=== PATIENT | female | born 1960 | race Caucasian/White ===

== ENCOUNTER → 2017-05-19 | Outpatient (CLI) | payer MEDICARE ==
--- NOTE | 2017-05-19 16:51 | WOMENS IMAGING REPORT ---
EXAM DESCRIPTION: 3D SCREENING MAMMO BILAT COMPLETED DATE/TIME: 05/19/2017 11:04 am REASON FOR STUDY: ROUTINE BILATERAL SCREENIG;Z12.31 Z12.31 ENCNTR SCREEN MAMMOGRAM FOR MALIGNANT NE OPLASM OF YE COMPARISON: 2014 TECHNIQUE: Standard craniocaudal and mediolateral oblique views of each breast recorded using digita l acquisition and breast tomosynthesis. LIMITATIONS: None. FINDINGS: No masses, calcifications or architectural distortion. No areas of suspicion. Read with the assistance of CAD. .[facility] - R2 Cenova Version 1.3 .[facility] - R2 Cenova Version 1.3 .[facility] - R2 Cenova Version 2.4 .[facility] - R2 Cenova Version 2.4 .[facility] - R2 Vegetable Preparer Version 9.2 IMPRESSION: NORMAL MAMMOGRAM. BIRADS 1. BREAST DENSITY: a. The breasts are almost entirely fatty. BIRAD: 1 NEGATIVE RECOMMENDATION: ROUTINE SCREENING COMMENT: The patient has been notified of the results by letter per MQSA requirements. Additional no tification policies are in place for contacting patient with suspicious or incomplete findings. Quality ID #[id number]: The [employer] recommends an annual screening mammogram for women aged 40 years or over. This facility utilizes a reminder system to ensure that all patients receive reminder letters, and/or direct phone calls for appointments. This includes reminders for routine scr eening mammograms, diagnostic mammograms, or other Breast Imaging Interventions when appropriate. Th is patient will be placed in the appropriate reminder system. The [employer] (ACR) has developed recommendations for screening MRI of the breast s in certain patient populations, to be used in conjunction with mammography. Breast MRI surveillanc e may be appropriate for women with more than 20% lifetime risk of developing breast cancer as deter mined by genetic testing, significant family history of the disease, or history of mantle radiation f or Hodgkins Disease. ACR Practice Guidelines 2008. DBT Technology DBT is a type of tomographic mammography. With conventional mammography, overlapping breast tissue ma y make lesions difficult to detect, even with good compression. DBT uses an x-ray tube that rotates a round the breast, taking images at different angles. These images are then combined to create thin sl ices of the breast that the radiologist can view as a 3D reconstruction. The [employer] unit can perform full-field digital mammograms (2D imaging); or DBT (3D imaging); or both, in a combination mode that quickly performs both the mammogram and the tomosynthesis scan while the breast is still compressed. PQRS 6045F: Fluoroscopic imaging is not utilized for breast tomosynthesis. TECHNICAL DOCUMENTATION: FINDING NUMBER: (1) ASSESSMENT: (1) JOB ID: [id number] [employer]- All Rights Reserved
== END ==
LOC: WI 10:20
PROVIDERS: ATTEND Internal Medicine
DX: Z12.31 Encounter for screening mammogram for malignant neoplasm of breast (principal)
CPT/HCPCS: 77063; G0202; 77067

== ENCOUNTER 2017-12-23 05:47 | Emergency (ER) | payer MEDICARE ==
[2017-12-23] MEDS ORDERED: IPRATROPIUM/ALBUTEROL 0.5-2.5 MG/3 ML AMPUL NEB ONE (05:54)
[2017-12-23] MEDS: ALBUTEROL SULFATE 0.083% NEB 2.5 MG/3 ML AMPUL NEB SCH ×2 (06:25→06:26)
--- NOTE | 2017-12-23 06:46 | RADIOLOGY REPORT (SQ) ---
Chest single view on 12/23/2017 at 6:30 AM CLINICAL INDICATION: Shortness of breath COMPARISON: 08/29/2012 FINDINGS: The lungs are clear. The patient is slightly rotated on this exam. Mild vascular calcification is noted in the aorta. Cardiac, hilar and mediastinal contours are within normal limits. Pulmonary vascularity is within normal limits. No bony abnormality is noted. IMPRESSION: No active disease.
[2017-12-23 07:40] LABS: ABSOLUTE EOSINOPHILS # (AUTO) 0.2 10^3/uL (0.0-0.6); ABSOLUTE MONOCYTES (AUTO) 0.7 10^3/uL (0.1-1.4); ABSOLUTE NEUT (AUTO) 8.4 10^3/uL (1.7-8.2); BASOPHILS % (AUTO) 0.2 % (0-2); EOSINOPHILS % (AUTO) 2.2 % (0-6); HEMATOCRIT 36.1 % (36.0-47.0); HEMOGLOBIN 12.4 g/dL (12.0-15.5); LYMPHOCYTES % (AUTO) 9.8 % (13-45); MEAN CORPUSCULAR HEMOGLOBIN 27.9 pg (27.0-33.4); MEAN CORPUSCULAR HGB CONC 34.2 g/dL (32.0-36.0); MEAN CORPUSCULAR VOLUME 82 fl (80-97); MONOCYTES % (AUTO) 6.5 % (3-13); PLATELET COUNT 286 10^3/uL (150-450); RED BLOOD COUNT 4.43 10^6/uL (3.72-5.28); RED CELL DISTRIBUTION WIDTH 14.5 % (11.5-14.0); SEGMENTED NEUTROPHILS % (AUTO) 81.3 % (42-78); TOTAL CELLS COUNTED % (AUTO) 100 %; WHITE BLOOD COUNT 10.3 10^3/uL (4.0-10.5)
[2017-12-23 07:55] LABS: ANION GAP 7 (5-19); BLOOD UREA NITROGEN 5 mg/dL (7-20); CALCIUM 9.4 mg/dL (8.4-10.2); CARBON DIOXIDE 38 mmol/L (22-30); CHLORIDE 83 mmol/L (98-107); GLUCOSE 151 mg/dL (75-110); POTASSIUM 4.4 mmol/L (3.6-5.0); SODIUM 127.6 mmol/L (137-145)
[2017-12-23 08:43] LABS: VENOUS BLOOD BASE EXCESS 6.8 mmol/L; VENOUS BLOOD PH 7.33 (7.30-7.42)
[2017-12-23 08:45] LABS: VENOUS BLOOD PCO2 68.3 mmHg (35-63)
--- NOTE | 2017-12-23 10:57 | ER Document Report ---
ED General - General Chief Complaint: Shortness Of Breath Stated Complaint: DIFFICULTY BREATHING Time Seen by Provider: 12/23/17 06:50 TRAVEL OUTSIDE OF THE [place] IN LAST 30 DAYS: No - HPI Patient complains to provider of: Shortness of breath Notes: Patient has a history of COPD coming in for shortness of breath. Patient ongoing for the last 3-4 days. Patient is on home oxygen 3-1/2 L. Patient states was recently seen by primary care physician for productive cough and placed on doxycycline. Patient states symptoms have continued. Denies any fever chills nausea vomiting or diarrhea. Patient states she does feel anxious in the middle night sometimes waking of having shortness of breath. Patient denies any history of sleep apnea. Patient resting company upon my evaluation on her home O2 no signs of hypoxia. Patient does continue to smoke states last assessment was prior to arrival. - Related Data Allergies/Adverse Reactions: amoxicillin [Amoxicillin] Allergy (Mild, Verified 12/23/17 10:02) Hives cephalexin monohydrate [From Keflex] Allergy (Mild, Verified 12/23/17 10:02) Hives ciprofloxacin [From Cipro] Allergy (Mild, Verified 12/23/17 10:02) Hives codeine [Codeine] Allergy (Mild, Verified 12/23/17 10:02) Hives erythromycin base [Erythromycin Base] Allergy (Mild, Verified 12/23/17 10:02) Hives Penicillins Allergy (Mild, Verified 12/23/17 10:02) Hives Past Medical History - Social History Smoking Status: Never Smoker Family History: Arthritis, CAD, Hyperlipidemia, Hypertension Patient has suicidal ideation: No Patient has homicidal ideation: No - Past Medical History Cardiac Medical History: Reports: Hx Hypercholesterolemia, Hx Hypertension Pulmonary Medical History: Reports: Hx COPD, Hx Pneumonia Endocrine Medical History: Reports: Hx Diabetes Mellitus Type 2 Renal/ Medical History: Denies: Hx Peritoneal Dialysis GI Medical History: Reports: Hx Gastroesophageal Reflux Disease Musculoskeletal Medical History: Reports Hx Arthritis Past Surgical History: Reports: Hx Section, Hx Cholecystectomy - Immunizations Immunizations up to date: Yes Hx Diphtheria, Pertussis, Tetanus Vaccination: Yes Hx Pneumococcal Vaccination: 06/06/11 Review of Systems - Review of Systems Constitutional: No symptoms reported EENT: No symptoms reported Cardiovascular: No symptoms reported Respiratory: Short of breath Gastrointestinal: No symptoms reported Genitourinary: No symptoms reported Female Genitourinary: No symptoms reported Musculoskeletal: No symptoms reported Skin: No symptoms reported Hematologic/Lymphatic: No symptoms reported Neurological/Psychological: No symptoms reported -: Yes All other systems reviewed and negative Physical Exam - Vital signs Vitals: Pulse Ox 97 12/23/17 05:51 Interpretation: Normal - General General appearance: Appears well, Alert - HEENT Head: Normocephalic, Atraumatic Eyes: Normal Pupils: PERRL - Respiratory Respiratory status: No respiratory distress Chest status: Nontender Breath sounds: Wheezing - Scattered fine Chest palpation: Normal - Cardiovascular Rhythm: Regular Heart sounds: Normal auscultation Murmur: No - Abdominal Inspection: Normal Distension: No distension Bowel sounds: Normal Tenderness: Nontender Organomegaly: No organomegaly - Back Back: Normal, Nontender - Extremities General upper extremity: Normal inspection, Nontender, Normal color, Normal ROM , Normal temperature General lower extremity: Normal inspection, Nontender, Normal color, Normal ROM , Normal temperature, Normal weight bearing. No: Jerry's sign - Neurological Neuro grossly intact: Yes Cognition: Normal Orientation: AAOx4 [place] Coma Scale Eye Opening: Spontaneous [place] Coma Scale Verbal: Oriented [place] Coma Scale Motor: Obeys Commands Edilberto Coma Scale Total: 15 Speech: Normal Motor strength normal: LUE, RUE, LLE, RLE Sensory: Normal - Psychological Associated symptoms: Normal affect, Normal mood - Skin Skin Temperature: Warm Skin Moisture: Dry Skin Color: Normal Course - Re-evaluation Re-evalutation: 12/23/17 14:55 Laboratory studies that showed elevated bicarbonate for a venous blood gas was drawn although there is elevation of the patient's CO2 this looks to be chronic and there is no signs of acidosis. During her stay here the patient's vital signs show no signs of hypoxia patient maintaining here in ER with normal vital signs. Patient has no signs of acute respiratory distress nor CO2 narcosis. Patient case and laboratory findings were discussed with PCP recommend continued course agrees with steroids at this time will discharge patient home follow-up in 1-2 weeks patient is also heavily encouraged to stop smoking. - Vital Signs Vital signs: Temp Pulse Resp BP Pulse Ox 97.1 F 18 123/65 96 12/23/17 11:08 12/23/17 11:08 12/23/17 11:08 12/23/17 11:08 - Laboratory Result Diagrams: 12/23/17 05:55 12/23/17 05:55 Laboratory results interpreted by me: 12/23/17 12/23/17 12/23/17 05:55 05:55 05:55 RDW 14.5 H Seg Neutrophils % 81.3 H Lymphocytes % 9.8 L Absolute Neutrophils 8.4 H VBG pCO2 68.3 H* VBG HCO3 35.0 H Sodium 127.6 L Chloride 83 L Carbon Dioxide 38 H BUN 5 L Glucose 151 H POC Glucose 12/23/17 07:53 RDW Seg Neutrophils % Lymphocytes % Absolute Neutrophils VBG pCO2 VBG HCO3 Sodium Chloride Carbon Dioxide BUN Glucose POC Glucose 211 H Discharge - Discharge Clinical Impression: Cough, Smoking addiction COPD (chronic obstructive pulmonary disease) Qualifiers: COPD type: unspecified COPD Qualified Code(s): J44.9 - Chronic obstructive pulmonary disease, unspecified Disposition: HOME, SELF-CARE Instructions: Chronic Obstructive Lung Disease ([facility]) Additional Instructions: Your examination today shows a slight exacerbation of her COPD. Otherwise after breathing treatment your vital signs have been normal. Lab work does not show any critical pathology. Chest x-ray is negative for any signs of pneumonia. I did discuss her case with your primary care physician Dr. Argueta. Recommend to continue doxycycline as prescribed I will start you on steroids for the next few days to also see if this will aid in your symptoms. I also recommend following up with Dr. Argueta in approximately 1-2 weeks. Prescriptions: Prednisone [Deltasone 20 mg Tablet] 2 tab PO DAILY 4 Days tablet Forms: Smoking Cessation Education Referrals: YAJAIRA ARGUETA MD [Primary Care Provider] - Follow up in 1 week
[2017-12-23 11:20] VITALS: BP 123/65
--- NOTE | 2017-12-23 22:08 | EKG REPORT ---
SEVERITY:- BORDERLINE ECG - SINUS RHYTHM BORDERLINE INFERIOR Q WAVES : Confirmed by: Summer Pak 23-Dec-2017 22:07:40
== END 2017-12-23 11:21 | disposition home or self-care (01) ==
LOC: ER 05:47
DX: J44.9 Chronic obstructive pulmonary disease, unspecified (principal); Z99.81 Dependence on supplemental oxygen; F17.200 Nicotine dependence, unspecified, uncomplicated; F41.9 Anxiety disorder, unspecified; R06.02 Shortness of breath; R05 Cough; I10 Essential (primary) hypertension; E11.9 Type 2 diabetes mellitus without complications; Z88.0 Allergy status to penicillin; Z88.1 Allergy status to other antibiotic agents; Z88.5 Allergy status to narcotic agent; Z87.01 Personal history of pneumonia (recurrent)
CPT/HCPCS: 93005; 94640 ×2; 99285; 36415; 82962; 85025; 80048; 84484; 82803; 71045; 93010; A9270 ×2; J7620

== ENCOUNTER 2017-12-26 04:24 | Observation (INO) | payer MEDICARE ==
[2017-12-26] MEDS ORDERED: NORMAL SALINE 1000 ML 1,000 ML IV ONE (04:47)
[2017-12-26] MEDS ORDERED: IPRATROPIUM/ALBUTEROL 0.5-2.5 MG/3 ML AMPUL NEB ONE (04:47)
--- NOTE | 2017-12-26 04:49 | ER Document Report ---
ED Respiratory Problem - General Chief Complaint: Shortness Of Breath Stated Complaint: SHORTNESS OF BREATH Time Seen by Provider: 12/26/17 04:34 Notes: Patient is a 57-year-old female with a history of COPD and continued tobacco abuse that comes emergency department for chief complaint of shortness of breath. Symptoms started just prior to arrival when she woke up, she comes by EMS, received 2 DuoNeb treatments and 125 mg of Solu-Medrol. She is already on doxycycline and steroid, last medication of the steroid is today. She denies fever or chills. She denies specific chest pain without cough. She denies dizziness or passing out. She denies vomiting. Other past medical history includes hypertension and oxygen dependence, is on 3.5 L of oxygen at all times currently. TRAVEL OUTSIDE OF THE [place] IN LAST 30 DAYS: No - Related Data Allergies/Adverse Reactions: amoxicillin [Amoxicillin] Allergy (Mild, Verified 12/23/17 10:02) Hives cephalexin monohydrate [From Keflex] Allergy (Mild, Verified 12/23/17 10:02) Hives ciprofloxacin [From Cipro] Allergy (Mild, Verified 12/23/17 10:02) Hives codeine [Codeine] Allergy (Mild, Verified 12/23/17 10:02) Hives erythromycin base [Erythromycin Base] Allergy (Mild, Verified 12/23/17 10:02) Hives Penicillins Allergy (Mild, Verified 12/23/17 10:02) Hives Past Medical History - General Information source: Patient - Social History Smoking Status: Current Every Day Smoker Smoking Education Provided: Yes - <3 min Frequency of alcohol use: None Drug Abuse: None Lives with: Family Family History: Arthritis, CAD, Hyperlipidemia, Hypertension - Past Medical History Cardiac Medical History: Reports: Hx Hypercholesterolemia, Hx Hypertension Pulmonary Medical History: Reports: Hx COPD, Hx Pneumonia Endocrine Medical History: Reports: Hx Diabetes Mellitus Type 2 Renal/ Medical History: Denies: Hx Peritoneal Dialysis GI Medical History: Reports: Hx Gastroesophageal Reflux Disease Musculoskeletal Medical History: Reports Hx Arthritis Past Surgical History: Reports: Hx Section, Hx Cholecystectomy - Immunizations Immunizations up to date: Yes Hx Diphtheria, Pertussis, Tetanus Vaccination: Yes Hx Pneumococcal Vaccination: 06/06/11 Review of Systems - Review of Systems Constitutional: No symptoms reported EENT: No symptoms reported Cardiovascular: See HPI Respiratory: See HPI Gastrointestinal: No symptoms reported Genitourinary: No symptoms reported Female Genitourinary: No symptoms reported Musculoskeletal: No symptoms reported Skin: No symptoms reported Hematologic/Lymphatic: No symptoms reported Neurological/Psychological: No symptoms reported Physical Exam - Vital signs Vitals: Resp 12/26/17 04:31 - Notes Notes: GENERAL: Alert, interacts well. Does not appear to be in distress HEAD: Normocephalic, atraumatic. EYES: Pupils equal, round, and reactive to light. Extraocular movements intact. ENT: Oral mucosa moist, tongue midline. [Nares patent, no nasal septal hematoma , TM's intact.] NECK: Full range of motion. Supple. Trachea midline. LUNGS: Decreased breath sounds bilaterally with end expiratory wheezes throughout, a few scattered coarse breath sounds, no overt rhonchi or rales. No notable tachypnea or distress. HEART: Tachycardic, normal rhythm, no murmur. ABDOMEN: Soft, non-tender. Non-distended. Bowel sounds present in all 4 quadrants. EXTREMITIES: Moves all 4 extremities spontaneously. No edema, normal radial and dorsalis pedis pulses bilaterally. No cyanosis. BACK: no cervical, thoracic, lumbar midline tenderness. No saddle anesthesia, normal distal neurovascular exam. NEUROLOGICAL: Alert and oriented x3. Normal speech. [cranial nerves II through XII grossly intact]. PSYCH: Intermittently mildly anxious but no severe anxiety or concerning abnormality noted SKIN: Warm, dry, normal turgor. No rashes or lesions noted. Course - Re-evaluation Re-evalutation: On initial evaluation patient has decreased breath sounds, expiratory wheezes, however she is not in respiratory distress. Her oxygen saturation is ranging from 90-97% on her regular oxygen. No fever. Tachycardia probably from albuterol treatments but uncertain at this time. Giving IV fluids, duo nebs, magnesium, workup pending, will reevaluate. On reexamination patient's wheezing has resolved, lung sounds much improved, oxygen saturation with no significant change from a patient with no significant change. Chest x-ray with no acute abnormality, CBC shows mild leukocytosis which is nonspecific given patient's steroid use, chemistry shows mild hyponatremia, hypochloremia, mildly elevated potassium but patient was given 1 L of IV fluids. Venous blood gas shows CO2 of 73, however previous CO2 was 68 when she was discharged home and there is no acidosis. There is compensation. Suspect this is chronic. Patient stating she is below her baseline at home, she was seen here 3 days ago and already placed on steroids, she is already on doxycycline. When ambulated patient's pulse oxygenation dropped down to 88%, heart rate went up to the 120s , she did have labored breathing. Patient states she is not at her baseline and she is not comfortable going home yet. 12/26/17 07:[address] Argueta, patient's provider, patient will be admitted to telemetry observation for COPD exacerbation. - Vital Signs Vital signs: Temp Pulse Resp BP Pulse Ox 97.9 F 21 H 127/82 H 90 L 12/26/17 04:34 12/26/17 07:00 12/26/17 06:01 12/26/17 07:00 - Laboratory Result Diagrams: 12/26/17 05:10 12/26/17 05:10 Laboratory results interpreted by me: 12/26/17 12/26/17 12/26/17 05:10 05:10 05:10 WBC 11.5 H RDW 14.9 H Seg Neutrophils % 85.5 H Lymphocytes % 10.3 L Absolute Neutrophils 9.9 H VBG pCO2 73.0 H* VBG HCO3 40.0 H Sodium 130.9 L Potassium 5.3 H Chloride 81 L Carbon Dioxide 35 H Glucose 146 H Direct Bilirubin 0.6 H AST 37 H Discharge - Discharge Clinical Impression: Wheezing, Tobacco abuse COPD (chronic obstructive pulmonary disease) Qualifiers: COPD type: unspecified COPD Qualified Code(s): J44.9 - Chronic obstructive pulmonary disease, unspecified Condition: Stable Disposition: ADMITTED OBSERVATION Admitting Provider: [facility] Admitted: Telemetry Referrals: YAJAIRA ARGUETA MD [Primary Care Provider] - Follow up as needed
[2017-12-26] MEDS: MAGNESIUM SULFATE/D5W 1 GM/100 ML RTUPB IV SCH ×2 (05:07→05:44)
[2017-12-26 05:29] LABS: VENOUS BLOOD PH 7.36 (7.30-7.42)
[2017-12-26 05:30] LABS: ABSOLUTE LYMPHOCYTES (AUTO) 1.2 10^3/uL (0.5-4.7); ABSOLUTE MONOCYTES (AUTO) 0.4 10^3/uL (0.1-1.4); ABSOLUTE NEUT (AUTO) 9.9 10^3/uL (1.7-8.2); BASOPHILS % (AUTO) 0.3 % (0-2); EOSINOPHILS % (AUTO) 0.1 % (0-6); HEMATOCRIT 39.4 % (36.0-47.0); HEMOGLOBIN 13.2 g/dL (12.0-15.5); LYMPHOCYTES % (AUTO) 10.3 % (13-45); MEAN CORPUSCULAR HEMOGLOBIN 27.8 pg (27.0-33.4); MEAN CORPUSCULAR HGB CONC 33.5 g/dL (32.0-36.0); MEAN CORPUSCULAR VOLUME 83 fl (80-97); MONOCYTES % (AUTO) 3.8 % (3-13); PLATELET COUNT 355 10^3/uL (150-450); RED BLOOD COUNT 4.75 10^6/uL (3.72-5.28); RED CELL DISTRIBUTION WIDTH 14.9 % (11.5-14.0); SEGMENTED NEUTROPHILS % (AUTO) 85.5 % (42-78); TOTAL CELLS COUNTED % (AUTO) 100 %; WHITE BLOOD COUNT 11.5 10^3/uL (4.0-10.5)
[2017-12-26 05:52] LABS: ALANINE AMINOTRANSFERASE 25 U/L (9-52); ALBUMIN 4.1 g/dL (3.5-5.0); ALKALINE PHOSPHATASE 60 U/L (38-126); ANION GAP 15 (5-19); ASPARTATE AMINO TRANSFERASE 37 U/L (14-36); BILIRUBIN,DIRECT 0.6 mg/dL (0.0-0.4); BILIRUBIN,TOTAL 0.7 mg/dL (0.2-1.3); BLOOD UREA NITROGEN 12 mg/dL (7-20); CALCIUM 10.1 mg/dL (8.4-10.2); CARBON DIOXIDE 35 mmol/L (22-30); CHLORIDE 81 mmol/L (98-107); CREATINE KINASE 96 U/L (30-135); GLUCOSE 146 mg/dL (75-110); POTASSIUM 5.3 mmol/L (3.6-5.0); SODIUM 130.9 mmol/L (137-145); TOTAL PROTEIN 7.9 g/dL (6.3-8.2)
--- NOTE | 2017-12-26 06:25 | RADIOLOGY REPORT (SQ) ---
Chest single view on 12/26/2017 at 5:42 AM CLINICAL INDICATION: Shortness of breath COMPARISON: 12/23/2017 FINDINGS: The lungs are clear. Mild vascular calcification is noted in the aorta. Cardiac, hilar and mediastinal contours are within normal limits. Pulmonary vascularity is within normal limits. No bony abnormality is noted. IMPRESSION: No active disease.
--- NOTE | 2017-12-26 06:48 | EKG REPORT ---
SEVERITY:- ABNORMAL ECG - SINUS TACHYCARDIA : Confirmed by: Summer Pak 26-Dec-2017 06:47:57
[2017-12-26] MEDS: FLUTICASONE/UMECLIDIN/VILANTER 100-62.5-25 MCG/DOSE IH SCH (09:57)
[2017-12-26] MEDS: PREDNISONE 20 MG TABLET PO SCH (09:57)
[2017-12-26] MEDS: ENOXAPARIN SODIUM INJ 40 MG/0.4 ML DISP.SYRIN SUBCUT SCH (09:58)
[2017-12-26] MEDS ORDERED: PREDNISONE 5 MG TABLET PO SCH (10:00)
[2017-12-26 11:44] LABS: ARTERIAL BLOOD BASE EXCESS 8.7 mmol/L; ARTERIAL BLOOD FIO2 3L; ARTERIAL BLOOD H2CO3 1.85 mmol/L (1.05-1.35); ARTERIAL BLOOD HCO3 35.9 mmol/L (20-26); ARTERIAL BLOOD O2 SATURATION 95.6 % (94-98); ARTERIAL BLOOD PCO2 61.3 mmHg (35-45); ARTERIAL BLOOD PH 7.39 (7.35-7.45); ARTERIAL BLOOD PO2 81.5 mmHg (80-100); ARTERIAL BLOOD TOTAL CO2 37.7 mmol/L (21-25)
[2017-12-26] MEDS ORDERED: NICOTINE 21 MG/24 HR PATCH.TD24 TD PRN (15:11)
[2017-12-26] MEDS ORDERED: ALBUTEROL SULFATE HFA (90 MCG/PUFF) 8 GM MDI (1 MDI/ER DISP) IH PRN (20:55)
[2017-12-26] MEDS ORDERED: (PENDING PHARMACY ID) (Lisinopril/Hydrochlorothiazide [Lisinopril-Hctz 20-12.5 Mg Tab] 1 T PO SCH (21:00)
[2017-12-26] MEDS ORDERED: CYANOCOBALAMIN (VITAMIN B-12) INJ 1000 MCG/1 ML VIAL SUBCUT SCH (21:00)
[2017-12-26] MEDS ORDERED: (PENDING PHARMACY ID) (Tiotropium Bromide [Spiriva Respimat] 1 PUFF) IH SCH (21:00)
[2017-12-26] MEDS ORDERED: (PENDING PHARMACY ID) (Rabeprazole Sodium [Aciphex] 20 MG) PO SCH (21:00)
[2017-12-26] MEDS ORDERED: BUPROPION HCL 150 MG PO SCH (21:00)
--- NOTE | 2017-12-26 21:07 | PDOC H&P ---
History of Present Illness Admission Date/PCP: 12/26/17 08:14 YAJAIRA ARGUETA MD History of Present Illness: TONY MCGINNIS is a 57 year old female, She has a history of chronic obstructive pulmonary disease, type 2 diabetes mellitus, tobacco abuse, continuous, she came to the emergency room twice for evaluation of shortness of breath, I saw her in the office last week for evaluation of shortness of breath, she continues to smoke despite COPD, the emergency room provider want her admitted to the hospital for management of her shortness of breath.The arterial blood gas on FiO2 3 L showed pH 7.39, PO2 81, mixed acid-base disorder. Chest x-ray did not show any acute infiltrate, a CT scan of the lung with IV contrast was attempted patient was so anxious she jumped of the bed when she was being scanned in the CT suite Past Medical History Cardiac Medical History: Reports: Hyperlipidema, Hypertension Pulmonary Medical History: Reports: Chronic Obstructive Pulmonary Disease (COPD) , Pneumonia Endocrine Medical History: Reports: Diabetes Mellitus Type 2 GI Medical History: Reports: Gastroesophageal Reflux Disease Musculoskeltal Medical History: Reports: Arthritis Hematology: Reports: Anemia Past Surgical History Past Surgical History: Reports: Section, Cholecystectomy Social History Lives with: Family Smoking Status: Current Every Day Smoker Drugs: None - Advance Directive Resuscitation Status: Full Code Family History Family History: Arthritis, CAD, Hyperlipidemia, Hypertension Parental Family History Reviewed: Yes Children Family History Reviewed: Yes Sibling(s) Family History Reviewed.: Yes Medication/Allergy Home Medications: Albuterol Sulfate [Ventolin HFA MDI 18 GM] 1 puff IH Q4HP PRN 12/26/17 Bupropion HCl [Zyban 150 mg Tablet] 150 mg PO DAILY 12/26/17 Cyanocobalamin (Vitamin B-12) [Vitamin B-12 Inj 1000 Mcg/1 ml Vial] 1,000 mcg SQ [id number] 12/26/17 Lisinopril/Hydrochlorothiazide [Lisinopril-Hctz 20-12.5 mg Tab] 1 tab PO DAILY 12/26/17 Metformin HCl [Glucophage] 1,000 mg PO BID 12/26/17 Nicotine [Nicoderm 21 mg/24 Hr Transderm Patch] 1 patch TOP DAILY 12/26/17 Pravastatin Sodium [Pravachol] 40 mg PO QHS 12/26/17 Rabeprazole Sodium [Aciphex] 20 mg PO DAILY 12/26/17 Tiotropium Neopit [Spiriva Respimat] 1 puff IH DAILY 12/26/17 Allergies/Adverse Reactions: amoxicillin [Amoxicillin] Allergy (Mild, Verified 12/26/17 09:55) Hives cephalexin monohydrate [From Keflex] Allergy (Mild, Verified 12/26/17 09:55) Hives ciprofloxacin [From Cipro] Allergy (Mild, Verified 12/26/17 09:55) Hives codeine [Codeine] Allergy (Mild, Verified 12/26/17 09:55) Hives erythromycin base [Erythromycin Base] Allergy (Mild, Verified 12/26/17 09:55) Hives Penicillins Allergy (Mild, Verified 12/26/17 09:55) Hives levofloxacin [From Levaquin] Allergy (Verified 12/26/17 09:56) moxifloxacin [From Avelox] Allergy (Verified 12/26/17 09:56) Review of Systems Constitutional: ABSENT: chills, fever(s), headache(s), weight gain, weight loss Eyes: ABSENT: visual disturbances Ears: ABSENT: hearing changes Cardiovascular: PRESENT: dyspnea on exertion Respiratory: PRESENT: cough Gastrointestinal: ABSENT: abdominal pain, constipation, diarrhea, hematemesis, hematochezia, nausea, vomiting Genitourinary: ABSENT: dysuria, hematuria Musculoskeletal: ABSENT: joint swelling Integumentary: ABSENT: rash, wounds Neurological: ABSENT: abnormal gait, abnormal speech, confusion, dizziness, focal weakness, syncope Psychiatric: ABSENT: anxiety, depression, homidical ideation, suicidal ideation Endocrine: ABSENT: cold intolerance, heat intolerance, menstrual abnormalities, polydipsia, polyuria Hematologic/Lymphatic: ABSENT: easy bleeding, easy bruising, lymphadenopathy Physical Exam Vital Signs: Temp Pulse Resp BP Pulse Ox 98.5 F 82 16 115/55 L 94 12/26/17 17:51 12/26/17 17:51 12/26/17 17:51 12/26/17 17:51 12/26/17 17:51 Intake & Output 12/25/17 12/26/17 12/27/17 06:59 06:59 06:59 Weight 106.4 kg General appearance: PRESENT: mild distress Head exam: PRESENT: atraumatic, normocephalic Eye exam: PRESENT: conjunctiva pink, EOMI, PERRLA Ear exam: PRESENT: normal external ear exam Mouth exam: PRESENT: moist, tongue midline Respiratory exam: PRESENT: wheezes Cardiovascular exam: PRESENT: RRR, +S1, +S2 Pulses: PRESENT: normal dorsalis pedis pul, +2 pedal pulses bilateral Vascular exam: PRESENT: normal capillary refill GI/Abdominal exam: PRESENT: soft Rectal exam: PRESENT: deferred Neurological exam: PRESENT: alert, awake, oriented to person, oriented to place , oriented to time, oriented to situation, CN II-XII grossly intact Psychiatric exam: PRESENT: appropriate affect, normal mood Skin exam: PRESENT: dry, intact, warm Results Laboratory Results: 12/26/17 11:27 Carbonic Acid 1.85 H HCO3/H2CO3 Ratio 19:1 ABG pH 7.39 ABG pCO2 61.3 H ABG pO2 81.5 ABG HCO3 35.9 H ABG O2 Saturation 95.6 ABG Base Excess 8.7 FiO2 3L Impressions: Chest X-Ray 12/26/17 04:47 IMPRESSION: No active disease. Assessment & Plan - Diagnosis (1) COPD with acute exacerbation Is this a current diagnosis for this admission?: Yes Plan: She is admitted for observation (2) Type 2 diabetes mellitus Qualifiers: Diabetes mellitus terminal worker insulin use: without snf use Diabetes mellitus complication status: without complication Qualified Code(s): E11.9 - Type 2 diabetes mellitus without complications Is this a current diagnosis for this admission?: Yes (3) Tobacco abuse Is this a current diagnosis for this admission?: Yes (4) Hyponatremia Is this a current diagnosis for this admission?: Yes
[2017-12-26] MEDS ORDERED: ALBUTEROL SULFATE HFA (90 MCG/PUFF) 200 PUFF/8.5 GM MDI IH PRN (21:17)
[2017-12-26] MEDS ORDERED: (PENDING PHARMACY ID) (Pravastatin Sodium [Pravachol] 40 MG) PO SCH (22:00)
[2017-12-26] MEDS ORDERED: LANSOPRAZOLE 30 MG TAB.RAP.DR PO ONE (22:00)
[2017-12-26] MEDS: METFORMIN HCL 500 MG TABLET PO SCH (22:17)
[2017-12-26] MEDS: ATORVASTATIN CALCIUM 10 MG TABLET PO SCH (22:18)
[2017-12-26] MEDS: HYDROCHLOROTHIAZIDE 12.5 MG TABLET PO SCH (22:18)
[2017-12-26] MEDS: LISINOPRIL 10 MG TABLET PO SCH (22:18)
[2017-12-26] MEDS: BUPROPION HCL 75 MG TABLET PO SCH (22:20)
[2017-12-26 23:27] LABS: URINE SODIUM 22 mmol/L (30-90)
[2017-12-26 23:30] LABS: OSMOLALITY,URINE 141 mOsm/kg (300-900)
[2017-12-27] MEDS: LANSOPRAZOLE 30 MG TAB.RAP.DR PO SCH (05:57)
[2017-12-27] MEDS: IPRATROPIUM/ALBUTEROL 0.5-2.5 MG/3 ML AMPUL NEB PRN ×2 (09:06→23:53)
[2017-12-27] MEDS ORDERED: NICOTINE 21 MG/24 HR PATCH.TD24 TOP SCH (10:00)
[2017-12-27] MEDS: ENOXAPARIN SODIUM INJ 40 MG/0.4 ML DISP.SYRIN SUBCUT SCH (10:26)
[2017-12-27] MEDS: BUPROPION HCL 75 MG TABLET PO SCH ×2 (10:27→22:10)
[2017-12-27] MEDS: PREDNISONE 20 MG TABLET PO SCH (10:28)
[2017-12-27] MEDS: METFORMIN HCL 500 MG TABLET PO SCH ×2 (10:28→22:09)
[2017-12-27] MEDS: LISINOPRIL 10 MG TABLET PO SCH (10:28)
[2017-12-27] MEDS: HYDROCHLOROTHIAZIDE 12.5 MG TABLET PO SCH (10:29)
[2017-12-27] MEDS: FLUTICASONE/UMECLIDIN/VILANTER 100-62.5-25 MCG/DOSE IH SCH (10:31)
[2017-12-27] MEDS ORDERED: GUAIFENESIN SYRP 200 MG/10 ML UDC PO PRN (12:08)
[2017-12-27] MEDS: ACETAMINOPHEN SOLN 325 MG/10.15 ML UDCUP PO PRN (12:45)
[2017-12-27] MEDS ORDERED: NICOTINE 21 MG/24 HR PATCH.TD24 TOP ONE ×3 (18:30→19:00)
--- NOTE | 2017-12-27 20:19 | PDOC DISCHARGE SUMMARY ---
General - Admit/Disc Date/PCP Admission Date/Primary Care Provider: 12/26/17 08:14 YAJAIRA ARGUETA MD Discharge Date: 12/27/17 - Discharge Diagnosis (1) COPD with acute exacerbation Is this a current diagnosis for this admission?: Yes (2) Type 2 diabetes mellitus Is this a current diagnosis for this admission?: Yes (3) Tobacco abuse Is this a current diagnosis for this admission?: Yes (4) Hyponatremia Is this a current diagnosis for this admission?: Yes (5) SIADH (syndrome of inappropriate ADH production) Is this a current diagnosis for this admission?: Yes (6) Hypercapnia with mixed acid-base disorder Is this a current diagnosis for this admission?: Yes - Additional Information Resuscitation Status: Full Code Home Medications: Albuterol Sulfate [Ventolin HFA MDI 18 GM] 1 puff IH Q4HP PRN 12/26/17 Bupropion HCl [Zyban 150 mg Tablet] 150 mg PO DAILY 12/26/17 Cyanocobalamin (Vitamin B-12) [Vitamin B-12 Inj 1000 Mcg/1 ml Vial] 1,000 mcg SQ [id number] 12/26/17 Lisinopril/Hydrochlorothiazide [Lisinopril-Hctz 20-12.5 mg Tab] 1 tab PO DAILY 12/26/17 Metformin HCl [Glucophage] 1,000 mg PO BID 12/26/17 Nicotine [Nicoderm 21 mg/24 Hr Transderm Patch] 1 patch TOP DAILY 12/26/17 Pravastatin Sodium [Pravachol] 40 mg PO QHS 12/26/17 Rabeprazole Sodium [Aciphex] 20 mg PO DAILY 12/26/17 Tiotropium Bulger [Spiriva Respimat] 1 puff IH DAILY 12/26/17 History of Present Illness History of Present Illness: TONY MCGINNIS is a 57 year old female, She has a history of chronic obstructive pulmonary disease, type 2 diabetes mellitus, tobacco abuse, continuous, she came to the emergency room twice for evaluation of shortness of breath, I saw her in the office last week for evaluation of shortness of breath, she continues to smoke despite COPD, the emergency room provider want her admitted to the hospital for management of her shortness of breath.The arterial blood gas on FiO2 3 L showed pH 7.39, PO2 81, mixed acid-base disorder. Chest x-ray did not show any acute infiltrate, a CT scan of the lung with IV contrast was attempted patient was so anxious she jumped of the bed when she was being scanned in the CT suite Hospital Course Hospital Course: Patient was admitted for the management of acute COPD exacerbation, she was also found to have syndrome of inappropriate ADH secretion most likely related to the COPD. She was treated with bronchodilators p.o. prednisone, she was admitted for observation.She has permissive hypercapnia with mixed acid-base disorder this demonstrated severe COPD.She is also very anxious, she was advised that it is not safe for her to use benzodiazepine because this could suppress breathing and probably causes Physical Exam Vital Signs: Temp Pulse Resp BP Pulse Ox 98.3 F 77 18 126/79 H 96 12/27/17 15:51 12/27/17 15:51 12/27/17 15:51 12/27/17 15:51 12/27/17 15:51 Intake & Output 12/26/17 12/27/17 12/28/17 06:59 06:59 06:59 Intake Total 900 1034 Output Total 840 2000 Balance 60 -966 Weight 106.4 kg General appearance: PRESENT: no acute distress, well-developed, well-nourished Head exam: PRESENT: atraumatic, normocephalic Eye exam: PRESENT: conjunctiva pink, EOMI, PERRLA Ear exam: PRESENT: normal external ear exam Mouth exam: PRESENT: moist, tongue midline Neck exam: PRESENT: full ROM Respiratory exam: PRESENT: clear to auscultation kamila Cardiovascular exam: PRESENT: RRR. ABSENT: diastolic murmur, rubs, systolic murmur Pulses: PRESENT: normal dorsalis pedis pul, +2 pedal pulses bilateral Vascular exam: PRESENT: normal capillary refill GI/Abdominal exam: PRESENT: normal bowel sounds, soft Rectal exam: PRESENT: deferred Neurological exam: PRESENT: alert, CN II-XII grossly intact Psychiatric exam: PRESENT: appropriate affect, normal mood Skin exam: PRESENT: dry, intact, warm Results Laboratory Results: 12/26/17 12/26/17 22:20 23:05 Serum Osmolality 273 L Urine Osmolality 141 L Impressions: Chest X-Ray 12/26/17 04:47 IMPRESSION: No active disease. Qualifiers - * PATIENT BEING DISCHARGED WITH ANY OF THE FOLLOWING DIAGNOSIS: No
[2017-12-27 21:11] LABS: ALANINE AMINOTRANSFERASE 24 U/L (9-52); ALBUMIN 3.9 g/dL (3.5-5.0); ALKALINE PHOSPHATASE 63 U/L (38-126); ANION GAP 9 (5-19); ASPARTATE AMINO TRANSFERASE 20 U/L (14-36); BILIRUBIN,DIRECT 0.3 mg/dL (0.0-0.4); BILIRUBIN,TOTAL 0.4 mg/dL (0.2-1.3); BLOOD UREA NITROGEN 15 mg/dL (7-20); CALCIUM 9.8 mg/dL (8.4-10.2); CARBON DIOXIDE 37 mmol/L (22-30); CHLORIDE 80 mmol/L (98-107); GLUCOSE 126 mg/dL (75-110); POTASSIUM 4.9 mmol/L (3.6-5.0); SODIUM 126.2 mmol/L (137-145); TOTAL PROTEIN 7.1 g/dL (6.3-8.2)
[2017-12-27] MEDS: ATORVASTATIN CALCIUM 10 MG TABLET PO SCH (22:08)
[2017-12-28] MEDS: LANSOPRAZOLE 30 MG TAB.RAP.DR PO SCH (05:11)
[2017-12-28] MEDS: ACETAMINOPHEN SOLN 325 MG/10.15 ML UDCUP PO PRN (07:34)
[2017-12-28 08:25] VITALS: BP 98/84
[2017-12-28] MEDS ORDERED: NICOTINE 21 MG/24 HR PATCH.TD24 TOP SCH (18:00)
== END 2017-12-28 11:23 | disposition home or self-care (01) ==
LOC: ER 04:24 → EH 08:14 → 4N 17:15
PROVIDERS: ADMIT Internal Medicine; ATTEND Internal Medicine
DX: J44.1 Chronic obstructive pulmonary disease with (acute) exacerbation (principal); E11.9 Type 2 diabetes mellitus without complications; E87.1 Hypo-osmolality and hyponatremia; E22.2 Syndrome of inappropriate secretion of antidiuretic hormone; R06.89 Other abnormalities of breathing; F17.200 Nicotine dependence, unspecified, uncomplicated; E87.4 Mixed disorder of acid-base balance; E87.8 Other disorders of electrolyte and fluid balance, not elsewhere classified; Z87.01 Personal history of pneumonia (recurrent); Z82.49 Family history of ischemic heart disease and other diseases of the circulatory system; Z90.49 Acquired absence of other specified parts of digestive tract; Z79.899 Other long term (current) drug therapy; Z79.84 Long term (current) use of oral hypoglycemic drugs; Z99.81 Dependence on supplemental oxygen
CPT/HCPCS: 93005; 94640 ×3; 99285; 96365; 96366; 36415 ×2; 87040; 82803 ×2; 82550; 83930; 83935; 84300; 85025; 80053 ×2; 84484; 71045; 93010; G0378 ×4; A9270 ×13; J1650 ×2; J3475; J7030; J3490 ×4; J7512; J7620

== ENCOUNTER 2017-12-30 13:51 | Observation (INO) | payer MEDICARE ==
--- NOTE | 2017-12-30 14:07 | ER Document Report ---
ED General - General Stated Complaint: NAUSEA Time Seen by Provider: 12/30/17 14:05 Mode of Arrival: Ambulatory Information source: Patient Notes: 57-year-old female previous smoker who quit a few days prior after being in the hospital for COPD exacerbation presents with complaints of anxiety shortness of breath. 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 Patient states she feels like she is withdrawing from the cigarettes Patient states she is in fact breathing in fine just feels like she can get breath out or to cough out well TRAVEL OUTSIDE OF THE [place] IN LAST 30 DAYS: No - HPI Onset: Last week Onset/Duration: Intermittent Quality of pain: Achy Severity: Mild Pain Level: 1 Associated symptoms: Nonproductive cough, Shortness of breath, Other Exacerbated by: Denies Relieved by: Denies Similar symptoms previously: Yes Recently seen / treated by doctor: Yes - Related Data Allergies/Adverse Reactions: amoxicillin [Amoxicillin] Allergy (Mild, Verified 12/26/17 09:55) Hives cephalexin monohydrate [From Keflex] Allergy (Mild, Verified 12/26/17 09:55) Hives ciprofloxacin [From Cipro] Allergy (Mild, Verified 12/26/17 09:55) Hives codeine [Codeine] Allergy (Mild, Verified 12/26/17 09:55) Hives erythromycin base [Erythromycin Base] Allergy (Mild, Verified 12/26/17 09:55) Hives Penicillins Allergy (Mild, Verified 12/26/17 09:55) Hives levofloxacin [From Levaquin] Allergy (Verified 12/26/17 09:56) moxifloxacin [From Avelox] Allergy (Verified 12/26/17 09:56) Past Medical History - Social History Smoking Status: Former Smoker Cigarette use (# per day): No Chew tobacco use (# tins/day): No Smoking Education Provided: No Family History: Arthritis, CAD, Hyperlipidemia, Hypertension - Past Medical History Cardiac Medical History: Reports: Hx Hypercholesterolemia, Hx Hypertension Pulmonary Medical History: Reports: Hx COPD, Hx Pneumonia Endocrine Medical History: Reports: Hx Diabetes Mellitus Type 2 Renal/ Medical History: Denies: Hx Peritoneal Dialysis GI Medical History: Reports: Hx Gastroesophageal Reflux Disease Musculoskeletal Medical History: Reports Hx Arthritis Past Surgical History: Reports: Hx Section, Hx Cholecystectomy - Immunizations Immunizations up to date: Yes Hx Diphtheria, Pertussis, Tetanus Vaccination: Yes Hx Pneumococcal Vaccination: 06/06/11 Review of Systems - Review of Systems Notes: REVIEW OF SYSTEMS: CONSTITUTIONAL : Denies fever, chills, or sweats. Denies recent illness. EENT: Denies eye, ear, throat, or mouth pain or symptoms. Denies nasal or sinus congestion or discharge. Denies throat, tongue, or mouth swelling or difficulty swallowing. CARDIOVASCULAR: Denies chest pain. Denies palpitations or racing or irregular heart beat. Denies ankle edema. RESPIRATORY: Admits to cough GASTROINTESTINAL: Denies abdominal pain or distention. Denies nausea, vomiting , or diarrhea. Denies blood in vomitus, stools, or per rectum. Denies black, tarry stools. Denies constipation. GENITOURINARY: Denies difficulty urinating, painful urination, burning, frequency, blood in urine, or discharge. FEMALE GENITOURINARY: Denies vaginal bleeding, heavy or abnormal periods, irregular periods. Denies vaginal discharge or odor. MUSCULOSKELETAL: Denies back or neck pain or stiffness. Denies joint pain or swelling. SKIN: Denies rash, lesions or sores. HEMATOLOGIC : Denies easy bruising or bleeding. LYMPHATIC: Denies swollen, enlarged glands. NEUROLOGICAL: Admits to feeling jittery PSYCHIATRIC: Admits to anxiety ALL OTHER SYSTEMS REVIEWED AND NEGATIVE. PHYSICAL EXAMINATION: GENERAL: Well-appearing, well-nourished and in no acute distress. Patient is on nasal cannula satting 96% HEAD: Atraumatic, normocephalic. EYES: Pupils equal round and reactive to light, extraocular movements intact, conjunctiva are normal. ENT: Nares patent, oropharynx clear without exudates. Moist mucous membranes. NECK: Normal range of motion, supple without lymphadenopathy LUNGS: Breath sounds clear to auscultation bilaterally and equal. No wheezes rales or rhonchi. HEART: Regular rate and rhythm without murmurs ABDOMEN: Soft, nontender, nondistended abdomen. No guarding, no rebound. No masses appreciated. Female : deferred Musculoskeletal: Normal range of motion, no pitting or edema. No cyanosis. NEUROLOGICAL: Cranial nerves grossly intact. Normal speech, normal gait. Normal sensory, motor exams PSYCH: Anxious SKIN: Warm, Dry, normal turgor, no rashes or lesions noted. Dictation was performed using [employer] voice recognition software Physical Exam - Vital signs Vitals: Pulse Ox 96 12/30/17 14:00 Course - Re-evaluation Re-evalutation: 12/30/17 14:25 Given patient's presentation I expect elevated white count secondary to the use of steroids, otherwise she looks well is in no respiratory distress, I believe anxiety does play a large portion with the patient's complaints. She overall looks well is stable and will require close follow-up - Vital Signs Vital signs: Temp Pulse Resp BP Pulse Ox 22 H 109/97 H 94 12/30/17 15:02 12/30/17 15:02 12/30/17 15:02 - Laboratory Result Diagrams: 12/30/17 13:55 12/30/17 13:55 Laboratory results interpreted by me: 12/30/17 12/30/17 13:55 13:55 WBC 16.2 H RDW 14.8 H Absolute Neutrophils 12.4 H Sodium 120.2 L* Chloride 78 L Discharge - Discharge Clinical Impression: SIADH (syndrome of inappropriate ADH production), Hyponatremia Condition: Fair Disposition: ADMITTED OBSERVATION Admitting Provider: [facility] Admitted: Telemetry Referrals: YAJAIRA ARGUETA MD [Primary Care Provider] - Follow up as needed
[2017-12-30 14:17] LABS: ABSOLUTE BASOPHILS # (AUTO) 0.1 10^3/uL (0.0-0.2); ABSOLUTE EOSINOPHILS # (AUTO) 0.2 10^3/uL (0.0-0.6); ABSOLUTE LYMPHOCYTES (AUTO) 2.6 10^3/uL (0.5-4.7); ABSOLUTE MONOCYTES (AUTO) 0.9 10^3/uL (0.1-1.4); ABSOLUTE NEUT (AUTO) 12.4 10^3/uL (1.7-8.2); BASOPHILS % (AUTO) 0.6 % (0-2); EOSINOPHILS % (AUTO) 1.1 % (0-6); HEMATOCRIT 37.6 % (36.0-47.0); HEMOGLOBIN 12.7 g/dL (12.0-15.5); LYMPHOCYTES % (AUTO) 16.1 % (13-45); MEAN CORPUSCULAR HEMOGLOBIN 27.6 pg (27.0-33.4); MEAN CORPUSCULAR HGB CONC 33.8 g/dL (32.0-36.0); MEAN CORPUSCULAR VOLUME 82 fl (80-97); MONOCYTES % (AUTO) 5.7 % (3-13); PLATELET COUNT 324 10^3/uL (150-450); RED BLOOD COUNT 4.62 10^6/uL (3.72-5.28); RED CELL DISTRIBUTION WIDTH 14.8 % (11.5-14.0); SEGMENTED NEUTROPHILS % (AUTO) 76.5 % (42-78); TOTAL CELLS COUNTED % (AUTO) 100 %; WHITE BLOOD COUNT 16.2 10^3/uL (4.0-10.5)
[2017-12-30] MEDS ORDERED: LORAZEPAM 0.5 MG TABLET PO ONE (14:22)
[2017-12-30 14:35] LABS: CHLORIDE 78 mmol/L (98-107)
--- NOTE | 2017-12-30 14:40 | RADIOLOGY REPORT (SQ) ---
EXAM DESCRIPTION: CHEST SINGLE VIEW COMPLETED DATE/TIME: 12/30/2017 2:32 pm REASON FOR STUDY: sob COMPARISON: 12/26/2017 EXAM PARAMETERS: NUMBER OF VIEWS: One view. TECHNIQUE: Single frontal radiographic view of the chest acquired. RADIATION DOSE: NA LIMITATIONS: None. FINDINGS: LUNGS AND PLEURA: No opacities, masses or pneumothorax. No pleural effusion. MEDIASTINUM AND HILAR STRUCTURES: No masses. Contour normal. HEART AND VASCULAR STRUCTURES: Heart normal in size. Normal vasculature. BONES: No acute findings. HARDWARE: None in the chest. OTHER: No other significant finding. IMPRESSION: NO ACUTE RADIOGRAPHIC FINDING IN THE CHEST. TECHNICAL DOCUMENTATION: JOB ID: [id number] [employer]- All Rights Reserved Reading location - IP/workstation name: [email or web address]
[2017-12-30 14:50] LABS: ANION GAP 13 (5-19)
[2017-12-30 14:52] LABS: CREATINE KINASE MB 1.93 ng/mL (<4.55); NT PRO BNP 52 pg/mL (5-900)
[2017-12-30 14:53] LABS: TROPONIN I < 0.012 ng/mL
[2017-12-30 14:56] LABS: ALANINE AMINOTRANSFERASE 30 U/L (9-52); ALBUMIN 4.1 g/dL (3.5-5.0); ALKALINE PHOSPHATASE 67 U/L (38-126); ASPARTATE AMINO TRANSFERASE 19 U/L (14-36); BILIRUBIN,DIRECT 0.3 mg/dL (0.0-0.4); BILIRUBIN,TOTAL 0.9 mg/dL (0.2-1.3); BLOOD UREA NITROGEN 10 mg/dL (7-20); CALCIUM 9.7 mg/dL (8.4-10.2); CARBON DIOXIDE 29 mmol/L (22-30); GLUCOSE 89 mg/dL (75-110); POTASSIUM 4.6 mmol/L (3.6-5.0); TOTAL PROTEIN 7.1 g/dL (6.3-8.2)
[2017-12-30 15:02] LABS: CREATINE KINASE 41 U/L (30-135)
[2017-12-30 15:10] LABS: SODIUM 120.2 mmol/L (137-145)
[2017-12-30 17:15] LABS: APPEARANCE,URINE CLEAR; BILIRUBIN,URINE NEGATIVE (NEGATIVE); COLOR,URINE STRAW; GLUCOSE, URINE NEGATIVE (NEGATIVE); KETONES,URINE NEGATIVE (NEGATIVE); LEUKOCYTE ESTERASE,URINE NEGATIVE (NEGATIVE); NITRITE,URINE NEGATIVE (NEGATIVE); PROTEIN,URINE NEGATIVE (NEGATIVE); URINE SPECIFIC GRAVITY 1.004; UROBILINOGEN,URINE NEGATIVE mg/dL (<2.0)
[2017-12-30] MEDS ORDERED: ALBUTEROL SULFATE HFA (90 MCG/PUFF) 8 GM MDI (1 MDI/ER DISP) IH PRN (18:34)
[2017-12-30] MEDS ORDERED: GUAIFENESIN PO PRN (18:34)
[2017-12-30] MEDS ORDERED: DEXTROMETHORPHAN PO PRN (18:34)
[2017-12-30] MEDS ORDERED: GUAIFENESIN/D-METHORPHAN (200-20 MG) SYRUP 10 ML PO PRN (18:54)
[2017-12-30] MEDS ORDERED: (PENDING PHARMACY ID) (Tiotropium Bromide [Spiriva Respimat] 1 PUFF) IH SCH (19:00)
[2017-12-30] MEDS ORDERED: ALBUTEROL SULFATE HFA (90 MCG/PUFF) 200 PUFF/8.5 GM MDI IH PRN (20:39)
[2017-12-30] MEDS ORDERED: BUPROPION HCL 150 MG PO SCH (22:00)
[2017-12-30] MEDS ORDERED: (PENDING PHARMACY ID) (Doxycycline Hyclate [Vibramycin] 100 MG) PO SCH (22:00)
[2017-12-30] MEDS ORDERED: (PENDING PHARMACY ID) (Pravastatin Sodium [Pravachol] 40 MG) PO SCH (22:00)
--- NOTE | 2017-12-30 22:30 | EKG REPORT ---
SEVERITY:- ABNORMAL ECG - ATRIAL FIBRILLATION, V-RATE 83-86 NONSPECIFIC INTRAVENTRICULAR CONDUCTION DELAY BORDERLINE R WAVE PROGRESSION, ANTERIOR LEADS : Confirmed by: Kaylene Greenwood MD 30-Dec-2017 22:29:25
[2017-12-30] MEDS ORDERED: METFORMIN HCL 500 MG TABLET PO ONE (23:00)
[2017-12-30] MEDS ORDERED: ACETAMINOPHEN SOLN 325 MG/10.15 ML UDCUP ONE (23:14)
[2017-12-30] MEDS: BUPROPION HCL 75 MG TABLET PO SCH (23:26)
[2017-12-30] MEDS: DOXYCYCLINE HYCLATE 100 MG TABLET PO SCH (23:26)
[2017-12-30] MEDS: ATORVASTATIN CALCIUM 10 MG TABLET PO SCH (23:26)
[2017-12-30] MEDS: ACETAMINOPHEN SOLN 325 MG/10.15 ML UDCUP PO PRN (23:26)
[2017-12-30] MEDS ORDERED: NICOTINE 21 MG/24 HR PATCH.TD24 TD ONE (23:45)
[2017-12-31] MEDS: LANSOPRAZOLE 30 MG TAB.RAP.DR PO SCH (06:26)
[2017-12-31] MEDS ORDERED: (PENDING PHARMACY ID) (Tiotropium Bromide [Spiriva Respimat] 1 PUFF) IH SCH (10:00)
[2017-12-31] MEDS ORDERED: (PENDING PHARMACY ID) (Rabeprazole Sodium [Aciphex] 20 MG) PO SCH (10:00)
[2017-12-31] MEDS ORDERED: (PENDING PHARMACY ID) (Lisinopril/Hydrochlorothiazide [Lisinopril-Hctz 20-12.5 Mg Tab] 1 T PO SCH (10:00)
[2017-12-31] MEDS: BUPROPION HCL 75 MG TABLET PO SCH ×2 (10:01→21:08)
[2017-12-31] MEDS: DOXYCYCLINE HYCLATE 100 MG TABLET PO SCH ×2 (10:01→21:08)
[2017-12-31] MEDS: NICOTINE 21 MG/24 HR PATCH.TD24 TOP SCH (10:07)
[2017-12-31] MEDS: METFORMIN HCL 500 MG TABLET PO SCH ×2 (10:07→18:06)
[2017-12-31] MEDS: LISINOPRIL 10 MG TABLET PO SCH (10:08)
[2017-12-31] MEDS: HYDROCHLOROTHIAZIDE 12.5 MG TABLET PO SCH (10:10)
[2017-12-31] MEDS: ACETAMINOPHEN SOLN 325 MG/10.15 ML UDCUP PO PRN ×2 (10:52→20:43)
[2017-12-31] MEDS ORDERED: ALBUTEROL SULFATE HFA (90 MCG/PUFF) 200 PUFF/8.5 GM MDI IH PRN (11:00)
[2017-12-31 11:50] LABS: ABSOLUTE EOSINOPHILS # (AUTO) 0.1 10^3/uL (0.0-0.6); ABSOLUTE LYMPHOCYTES (AUTO) 2.2 10^3/uL (0.5-4.7); ABSOLUTE MONOCYTES (AUTO) 0.8 10^3/uL (0.1-1.4); ABSOLUTE NEUT (AUTO) 11.3 10^3/uL (1.7-8.2); BASOPHILS % (AUTO) 0.1 % (0-2); EOSINOPHILS % (AUTO) 0.7 % (0-6); HEMOGLOBIN 12.7 g/dL (12.0-15.5); LYMPHOCYTES % (AUTO) 15.3 % (13-45); MEAN CORPUSCULAR HGB CONC 34.2 g/dL (32.0-36.0); MEAN CORPUSCULAR VOLUME 82 fl (80-97); MONOCYTES % (AUTO) 5.6 % (3-13); PLATELET COUNT 314 10^3/uL (150-450); RED BLOOD COUNT 4.52 10^6/uL (3.72-5.28); RED CELL DISTRIBUTION WIDTH 14.9 % (11.5-14.0); SEGMENTED NEUTROPHILS % (AUTO) 78.3 % (42-78); TOTAL CELLS COUNTED % (AUTO) 100 %; WHITE BLOOD COUNT 14.5 10^3/uL (4.0-10.5)
[2017-12-31 12:08] LABS: ALBUMIN 3.8 g/dL (3.5-5.0); ANION GAP 13 (5-19); ASPARTATE AMINO TRANSFERASE 17 U/L (14-36); BLOOD UREA NITROGEN 11 mg/dL (7-20); CALCIUM 10.1 mg/dL (8.4-10.2); CARBON DIOXIDE 29 mmol/L (22-30); CHLORIDE 80 mmol/L (98-107); GLUCOSE 109 mg/dL (75-110); POTASSIUM 4.7 mmol/L (3.6-5.0); SODIUM 122.4 mmol/L (137-145)
[2017-12-31 12:09] LABS: ALANINE AMINOTRANSFERASE 23 U/L (9-52); ALKALINE PHOSPHATASE 66 U/L (38-126); BILIRUBIN,DIRECT 0.4 mg/dL (0.0-0.4)
--- NOTE | 2017-12-31 13:15 | PDOC H&P ---
History of Present Illness Admission Date/PCP: 12/30/17 15:45 YAJAIRA ARGUETA MD History of Present Illness: TONY MCGINNIS is a 57 year old female, she came to the emergency room for evaluation of anxiety symptoms, she has a history of COPD, SIADH due to COPD, she was given BuSpar for anxiety the last time he was admitted, she was advised to avoid benzodiazepine because of potential to suppress ventilation. 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, there is no seizure there is no loss of consciousness there is no confusion the ED physician wants her admitted because of the hyponatremia Past Medical History Cardiac Medical History: Reports: Hyperlipidema, Hypertension Pulmonary Medical History: Reports: Chronic Obstructive Pulmonary Disease (COPD) , Pneumonia GI Medical History: Reports: Gastroesophageal Reflux Disease Musculoskeltal Medical History: Reports: Arthritis Hematology: Reports: Anemia Past Surgical History Past Surgical History: Reports: Section, Cholecystectomy Social History Smoking Status: Former Smoker Drugs: None - Advance Directive Resuscitation Status: Full Code Family History Family History: Arthritis, CAD, Hyperlipidemia, Hypertension Parental Family History Reviewed: Yes Children Family History Reviewed: Yes Sibling(s) Family History Reviewed.: Yes Medication/Allergy Home Medications: Albuterol Sulfate [Ventolin HFA MDI 18 GM] 1 puff IH Q4HP PRN 12/26/17 Bupropion HCl [Zyban 150 mg Tablet] 150 mg PO Q12 12/26/17 Cyanocobalamin (Vitamin B-12) [Vitamin B-12 Inj 1000 Mcg/1 ml Vial] 1,000 mcg SQ [id number] 12/26/17 Lisinopril/Hydrochlorothiazide [Lisinopril-Hctz 20-12.5 mg Tab] 1 tab PO DAILY 12/26/17 Metformin HCl [Glucophage] 1,000 mg PO BID 12/26/17 Nicotine [Nicoderm 21 mg/24 Hr Transderm Patch] 1 patch TOP DAILY 12/26/17 Pravastatin Sodium [Pravachol] 40 mg PO QHS 12/26/17 Rabeprazole Sodium [Aciphex] 20 mg PO DAILY 12/26/17 Tiotropium Abbot [Spiriva Respimat] 1 puff IH DAILY 12/26/17 Doxycycline Hyclate [Vibramycin] 100 mg PO Q12 12/30/17 Guaifenesin/Dextromethorphan [Robafen Dm Cough Liquid] 5 ml PO Q4HP PRN Allergies/Adverse Reactions: amoxicillin [Amoxicillin] Allergy (Mild, Verified 12/30/17 16:53) Hives cephalexin monohydrate [From Keflex] Allergy (Mild, Verified 12/30/17 16:53) Hives ciprofloxacin [From Cipro] Allergy (Mild, Verified 12/30/17 16:53) Hives codeine [Codeine] Allergy (Mild, Verified 12/30/17 16:53) Hives erythromycin base [Erythromycin Base] Allergy (Mild, Verified 12/30/17 16:53) Hives Penicillins Allergy (Mild, Verified 12/30/17 16:53) Hives levofloxacin [From Levaquin] Allergy (Verified 12/30/17 16:53) moxifloxacin [From Avelox] Allergy (Verified 12/30/17 16:53) Review of Systems Constitutional: ABSENT: chills, fever(s), headache(s), weight gain, weight loss Eyes: ABSENT: visual disturbances Ears: ABSENT: hearing changes Cardiovascular: ABSENT: chest pain, dyspnea on exertion, edema, orthropnea, palpitations Respiratory: PRESENT: dyspnea Gastrointestinal: ABSENT: abdominal pain, constipation, diarrhea, hematemesis, hematochezia, nausea, vomiting Genitourinary: ABSENT: dysuria, hematuria Musculoskeletal: ABSENT: joint swelling Integumentary: ABSENT: rash, wounds Neurological: ABSENT: abnormal gait, abnormal speech, confusion, dizziness, focal weakness, syncope Psychiatric: PRESENT: anxiety. ABSENT: depression, homidical ideation, suicidal ideation Endocrine: ABSENT: cold intolerance, heat intolerance, menstrual abnormalities, polydipsia, polyuria Hematologic/Lymphatic: ABSENT: easy bleeding, easy bruising, lymphadenopathy Physical Exam Vital Signs: Temp Pulse Resp BP Pulse Ox 97.6 F 90 12 133/54 H 95 12/31/17 09:00 12/31/17 09:00 12/31/17 09:00 12/31/17 09:00 12/31/17 09:00 Intake & Output 12/30/17 12/31/17 01/01/18 06:59 06:59 06:59 Intake Total 250 Balance 250 Weight 102.5 kg General appearance: PRESENT: no acute distress, well-developed, well-nourished Head exam: PRESENT: atraumatic, normocephalic Eye exam: PRESENT: conjunctiva pink, EOMI, PERRLA Ear exam: PRESENT: normal external ear exam Mouth exam: PRESENT: moist, tongue midline Neck exam: PRESENT: full ROM Respiratory exam: PRESENT: wheezes Cardiovascular exam: PRESENT: RRR, +S1, +S2 Pulses: PRESENT: normal dorsalis pedis pul, +2 pedal pulses bilateral Vascular exam: PRESENT: normal capillary refill GI/Abdominal exam: PRESENT: normal bowel sounds, soft Rectal exam: PRESENT: deferred Neurological exam: PRESENT: alert, awake, oriented to person, oriented to place , oriented to time, oriented to situation, CN II-XII grossly intact Psychiatric exam: PRESENT: appropriate affect, normal mood Skin exam: PRESENT: dry, intact, warm. ABSENT: cyanosis, rash Results Laboratory Results: 12/31/17 10:08 12/31/17 11:08 12/30/17 12/31/17 12/31/17 16:50 10:08 11:08 WBC 14.5 H RBC 4.52 Hgb 12.7 Hct 37.0 MCV 82 MCH 28.0 MCHC 34.2 RDW 14.9 H Plt Count 314 Seg Neutrophils % 78.3 H Lymphocytes % 15.3 Monocytes % 5.6 Eosinophils % 0.7 Basophils % 0.1 Absolute Neutrophils 11.3 H Absolute Lymphocytes 2.2 Absolute Monocytes 0.8 Absolute Eosinophils 0.1 Absolute Basophils 0.0 Sodium 122.4 L Potassium 4.7 Chloride 80 L Carbon Dioxide 29 Anion Gap 13 BUN 11 Creatinine 0.77 Est GFR ( Amer) > 60 Est GFR (Non-Af Amer) > 60 Glucose 109 Calcium 10.1 Total Bilirubin 1.0 AST 17 ALT 23 Alkaline Phosphatase 66 Total Protein 7.0 Albumin 3.8 Urine Color STRAW Urine Appearance CLEAR Urine pH 8.0 Ur Specific [place] 1.004 Urine Protein NEGATIVE Urine Glucose (UA) NEGATIVE Urine Ketones NEGATIVE Urine Blood NEGATIVE Urine Nitrite NEGATIVE Ur Leukocyte Esterase NEGATIVE Urine WBC (Auto) 2 Impressions: Chest X-Ray 12/30/17 14:07 IMPRESSION: NO ACUTE RADIOGRAPHIC FINDING IN THE CHEST. Assessment & Plan - Diagnosis (1) SIADH (syndrome of inappropriate ADH production) Is this a current diagnosis for this admission?: Yes Plan: She has SIADH, she is not symptomatic, she will be fluid restricted (2) Anxiety Is this a current diagnosis for this admission?: Yes Plan: Most of the symptoms she is manifesting is due to nicotine withdrawal, she is a heavy smoker, she just recently stop smoking (3) COPD (chronic obstructive pulmonary disease) Qualifiers: COPD type: unspecified COPD Qualified Code(s): J44.9 - Chronic obstructive pulmonary disease, unspecified Is this a current diagnosis for this admission?: Yes
[2017-12-31] MEDS ORDERED: TRAMADOL HCL 50 MG TABLET PO PRN (14:24)
--- NOTE | 2017-12-31 15:14 | PDOC PROGRESS REPORT ---
Subjective Progress Note for:: 12/31/17 Subjective:: Patient was admitted for the management of hyponatremia, she is not symptomatic , she is fluid restricted, the sodium today is 122 Reason For Visit: SYNDRON OF INNAPROIPRATE SECRETION OF ANTIDIURETIC Physical Exam Vital Signs: Temp Pulse Resp BP Pulse Ox 98.5 F 81 18 104/54 L 91 L 12/31/17 11:20 12/31/17 11:20 12/31/17 11:20 12/31/17 11:20 12/31/17 11:20 Intake & Output 12/30/17 12/31/17 01/01/18 06:59 06:59 06:59 Intake Total 250 Balance 250 Weight 102.5 kg General appearance: PRESENT: no acute distress Head exam: PRESENT: atraumatic, normocephalic Eye exam: PRESENT: conjunctiva pink, EOMI, PERRLA Neck exam: PRESENT: full ROM Respiratory exam: PRESENT: clear to auscultation kamila Cardiovascular exam: PRESENT: +S1, +S2 Vascular exam: PRESENT: normal capillary refill GI/Abdominal exam: PRESENT: normal bowel sounds, soft Rectal exam: PRESENT: deferred Neurological exam: PRESENT: alert Results Laboratory Results: 12/31/17 10:08 12/31/17 11:08 12/30/17 12/31/17 12/31/17 16:50 10:08 11:08 WBC 14.5 H RBC 4.52 Hgb 12.7 Hct 37.0 MCV 82 MCH 28.0 MCHC 34.2 RDW 14.9 H Plt Count 314 Seg Neutrophils % 78.3 H Lymphocytes % 15.3 Monocytes % 5.6 Eosinophils % 0.7 Basophils % 0.1 Absolute Neutrophils 11.3 H Absolute Lymphocytes 2.2 Absolute Monocytes 0.8 Absolute Eosinophils 0.1 Absolute Basophils 0.0 Sodium 122.4 L Potassium 4.7 Chloride 80 L Carbon Dioxide 29 Anion Gap 13 BUN 11 Creatinine 0.77 Est GFR ( Amer) > 60 Est GFR (Non-Af Amer) > 60 Glucose 109 Calcium 10.1 Total Bilirubin 1.0 AST 17 ALT 23 Alkaline Phosphatase 66 Total Protein 7.0 Albumin 3.8 Urine Color STRAW Urine Appearance CLEAR Urine pH 8.0 Ur Specific [place] 1.004 Urine Protein NEGATIVE Urine Glucose (UA) NEGATIVE Urine Ketones NEGATIVE Urine Blood NEGATIVE Urine Nitrite NEGATIVE Ur Leukocyte Esterase NEGATIVE Urine WBC (Auto) 2 Impressions: Chest X-Ray 12/30/17 14:07 IMPRESSION: NO ACUTE RADIOGRAPHIC FINDING IN THE CHEST. Assessment & Plan - Diagnosis (1) SIADH (syndrome of inappropriate ADH production) Is this a current diagnosis for this admission?: Yes (2) Anxiety Is this a current diagnosis for this admission?: Yes (3) COPD (chronic obstructive pulmonary disease) Qualifiers: COPD type: unspecified COPD Qualified Code(s): J44.9 - Chronic obstructive pulmonary disease, unspecified Is this a current diagnosis for this admission?: Yes (4) Hyponatremia Is this a current diagnosis for this admission?: Yes Plan: Continue fluid restriction, she will be discharge home in the morning (5) Nicotine withdrawal Is this a current diagnosis for this admission?: Yes Plan: She has nicotine withdrawal syndrome, presently on nicotine patch
[2017-12-31] MEDS: BUSPIRONE HCL 10 MG TABLET PO SCH (17:33)
[2017-12-31] MEDS: ATORVASTATIN CALCIUM 10 MG TABLET PO SCH (21:08)
[2018-01-01] MEDS: ACETAMINOPHEN SOLN 325 MG/10.15 ML UDCUP PO PRN ×2 (06:28→13:52)
[2018-01-01] MEDS: LANSOPRAZOLE 30 MG TAB.RAP.DR PO SCH (06:29)
[2018-01-01] MEDS: NICOTINE 21 MG/24 HR PATCH.TD24 TOP SCH (10:40)
[2018-01-01] MEDS: HYDROCHLOROTHIAZIDE 12.5 MG TABLET PO SCH (10:41)
[2018-01-01] MEDS: METFORMIN HCL 500 MG TABLET PO SCH (10:41)
[2018-01-01] MEDS: DOXYCYCLINE HYCLATE 100 MG TABLET PO SCH (10:44)
[2018-01-01] MEDS: LISINOPRIL 10 MG TABLET PO SCH (10:44)
[2018-01-01] MEDS: BUSPIRONE HCL 10 MG TABLET PO SCH (10:45)
[2018-01-01] MEDS: BUPROPION HCL 75 MG TABLET PO SCH (10:45)
[2018-01-01 12:51] LABS: ALANINE AMINOTRANSFERASE 27 U/L (9-52); ALBUMIN 4.1 g/dL (3.5-5.0); ALKALINE PHOSPHATASE 72 U/L (38-126); ANION GAP 13 (5-19); ASPARTATE AMINO TRANSFERASE 19 U/L (14-36); BILIRUBIN,DIRECT 0.5 mg/dL (0.0-0.4); BLOOD UREA NITROGEN 14 mg/dL (7-20); CALCIUM 10.2 mg/dL (8.4-10.2); CARBON DIOXIDE 30 mmol/L (22-30); CHLORIDE 80 mmol/L (98-107); GLUCOSE 105 mg/dL (75-110); POTASSIUM 4.8 mmol/L (3.6-5.0); SODIUM 123.4 mmol/L (137-145); TOTAL PROTEIN 7.4 g/dL (6.3-8.2)
--- NOTE | 2018-01-01 14:40 | PDOC DISCHARGE SUMMARY ---
General - Admit/Disc Date/PCP Admission Date/Primary Care Provider: 12/30/17 15:45 YAJAIRA ARGUETA MD Discharge Date: 01/01/18 - Discharge Diagnosis (1) SIADH (syndrome of inappropriate ADH production) Is this a current diagnosis for this admission?: Yes (2) Anxiety Is this a current diagnosis for this admission?: Yes (3) COPD (chronic obstructive pulmonary disease) Is this a current diagnosis for this admission?: Yes (4) Hyponatremia Is this a current diagnosis for this admission?: Yes (5) Nicotine withdrawal Is this a current diagnosis for this admission?: Yes - Additional Information Resuscitation Status: Full Code Discharge Diet: Regular, Other (Comments) - Fluid restriction, 1500 cc in 24 hours Home Medications: Albuterol Sulfate [Ventolin HFA MDI 18 GM] 1 puff IH Q4HP PRN 12/26/17 Bupropion HCl [Zyban 150 mg Tablet] 150 mg PO Q12 12/26/17 Cyanocobalamin (Vitamin B-12) [Vitamin B-12 Inj 1000 Mcg/1 ml Vial] 1,000 mcg SQ [id number] 12/26/17 Lisinopril/Hydrochlorothiazide [Lisinopril-Hctz 20-12.5 mg Tab] 1 tab PO DAILY 12/26/17 Metformin HCl [Glucophage] 1,000 mg PO BID 12/26/17 Nicotine [Nicoderm 21 mg/24 Hr Transderm Patch] 1 patch TOP DAILY 12/26/17 Pravastatin Sodium [Pravachol] 40 mg PO QHS 12/26/17 Rabeprazole Sodium [Aciphex] 20 mg PO DAILY 12/26/17 Tiotropium Emerson [Spiriva Respimat] 1 puff IH DAILY 12/26/17 Acetaminophen [Tylenol Soln 325 mg/10.15 ml Udcup] 650 mg PO Q6HP PRN udc 01/01 History of Present Illness History of Present Illness: TONY MCGINNIS is a 57 year old female, she came to the emergency room for evaluation of anxiety symptoms, she has a history of COPD, SIADH due to COPD, she was given BuSpar for anxiety the last time he was admitted, she was advised to avoid benzodiazepine because of potential to suppress ventilation. 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 In the emergency room she had comprehensive metabolic panel drawn she was found to have hyponatremia with his sodium of 120 but she is not symptomatic from the hyponatremia, she has no LEATHER SPRAYER symptoms, there is no seizure there is no loss of consciousness there is no confusion the ED physician wants her admitted because of the hyponatremia Hospital Course Hospital Course: Patient was admitted for observation and management of asymptomatic syndrome of inappropriate ADH secretion. On admission the serum sodium was 120, she was managed with fluid restriction, the serum sodium has progressively increased in the last 2 days, the most recent serum sodium is 123. She has symptoms of nicotine withdrawal syndrome, she does not have symptoms related to hyponatremia.She could be discharged home safely today she is advised to continue to restrict fluid, 1500 cc in 24 hours, she will follow up in the office for routine blood work. She does recently stopped smoking after many years of tobacco use, she is very anxious but most of the symptoms she is manifesting is consistent with nicotine withdrawal syndrome, she was given nicotine patch at 21 mg/h per day she will continue same for 30 days and then progressively decreased the dose to 14mg/hr for 30 janene then 7mg/hr for 30 days Physical Exam Vital Signs: Temp Pulse Resp BP Pulse Ox 97.8 F 76 21 H 95/43 L 98 01/01/18 05:57 01/01/18 07:00 01/01/18 05:57 01/01/18 05:57 01/01/18 09:14 Intake & Output 12/31/17 01/01/18 01/02/18 06:59 06:59 06:59 Intake Total 250 1762 Output Total 1075 Balance 250 687 Weight 102.5 kg General appearance: PRESENT: no acute distress, well-developed, well-nourished Head exam: PRESENT: atraumatic, normocephalic Eye exam: PRESENT: conjunctiva pink, EOMI, PERRLA Ear exam: PRESENT: normal external ear exam Mouth exam: PRESENT: moist, tongue midline Neck exam: PRESENT: full ROM Respiratory exam: PRESENT: clear to auscultation kamila Cardiovascular exam: PRESENT: RRR, +S1, +S2 Pulses: PRESENT: normal dorsalis pedis pul, +2 pedal pulses bilateral Vascular exam: PRESENT: normal capillary refill GI/Abdominal exam: PRESENT: normal bowel sounds, soft Rectal exam: PRESENT: deferred Neurological exam: PRESENT: alert, awake, oriented to person, oriented to place , oriented to time, oriented to situation, CN II-XII grossly intact Psychiatric exam: PRESENT: appropriate affect, normal mood Skin exam: PRESENT: dry, intact, warm Results Laboratory Results: 12/31/17 10:08 01/01/18 12:21 01/01/18 12:21 Sodium 123.4 L Potassium 4.8 Chloride 80 L Carbon Dioxide 30 Anion Gap 13 BUN 14 Creatinine 0.75 Est GFR ( Amer) > 60 Est GFR (Non-Af Amer) > 60 Glucose 105 Calcium 10.2 Total Bilirubin 1.0 AST 19 ALT 27 Alkaline Phosphatase 72 Total Protein 7.4 Albumin 4.1 Impressions: Chest X-Ray 12/30/17 14:07 IMPRESSION: NO ACUTE RADIOGRAPHIC FINDING IN THE CHEST. Qualifiers - * PATIENT BEING DISCHARGED WITH ANY OF THE FOLLOWING DIAGNOSIS: No
[2018-01-01 16:43] VITALS: BP 102/54
[2018-01-05] MEDS ORDERED: CYANOCOBALAMIN (VITAMIN B-12) INJ 1000 MCG/1 ML VIAL SUBCUT SCH (10:00)
== END 2018-01-01 18:13 | disposition home or self-care (01) ==
LOC: ER 13:51 → EH 15:45 → 5 17:31
PROVIDERS: ADMIT Internal Medicine; ATTEND Internal Medicine
DX: E22.2 Syndrome of inappropriate secretion of antidiuretic hormone (principal); F41.9 Anxiety disorder, unspecified; J44.9 Chronic obstructive pulmonary disease, unspecified; E87.1 Hypo-osmolality and hyponatremia; F17.213 Nicotine dependence, cigarettes, with withdrawal; R05 Cough; E78.5 Hyperlipidemia, unspecified; Z79.899 Other long term (current) drug therapy; Z90.49 Acquired absence of other specified parts of digestive tract; Z82.49 Family history of ischemic heart disease and other diseases of the circulatory system
CPT/HCPCS: 93005; 99285; 36415 ×3; 82553; 82962 ×3; 82550; 85025 ×2; 80053 ×3; 81001; 84484; 83880; 71045; 93010; G0378 ×3; A9270 ×10; J3490 ×3

== ENCOUNTER 2018-03-14 10:21 | Emergency (ER) | payer MEDICARE ==
--- NOTE | 2018-03-14 11:20 | RADIOLOGY REPORT (SQ) ---
EXAM DESCRIPTION: ABDOMEN 2 VIEWS COMPLETED DATE/TIME: 03/14/2018 11:01 am REASON FOR STUDY: query obstructive pattern COMPARISON: None. NUMBER OF VIEWS: Two views. TECHNIQUE: Supine and erect/decubitus radiographic images of the abdomen acquired. LIMITATIONS: None. FINDINGS: FREE AIR: None. No abnormal gas collections. LUNG BASES: Clear. BOWEL GAS PATTERN: Abundant fecal material from the cecum to the rectum. Few scattered small bowel l oops with air fluid levels. No distended large or small bowel loops. CALCIFICATIONS: No suspicious calcifications. SOFT TISSUES: No gross mass or suggestion of organomegaly. HARDWARE: None in the abdomen. BONES: No acute fracture. No worrisome bone lesions. OTHER: No other significant finding. IMPRESSION: Fecal retention. No obstruction. TECHNICAL DOCUMENTATION: JOB ID: [id number] [employer]- All Rights Reserved Reading location - IP/workstation name: [email or web address]
[2018-03-14 12:25] LABS: ABSOLUTE EOSINOPHILS # (AUTO) 0.1 10^3/uL (0.0-0.6); ABSOLUTE MONOCYTES (AUTO) 0.6 10^3/uL (0.1-1.4); ABSOLUTE NEUT (AUTO) 8.6 10^3/uL (1.7-8.2); BASOPHILS % (AUTO) 0.4 % (0-2); EOSINOPHILS % (AUTO) 1.4 % (0-6); HEMATOCRIT 26.7 % (36.0-47.0); HEMOGLOBIN 9.2 g/dL (12.0-15.5); LYMPHOCYTES % (AUTO) 9.6 % (13-45); MEAN CORPUSCULAR HEMOGLOBIN 28.9 pg (27.0-33.4); MEAN CORPUSCULAR HGB CONC 34.2 g/dL (32.0-36.0); MEAN CORPUSCULAR VOLUME 84 fl (80-97); MONOCYTES % (AUTO) 5.4 % (3-13); PLATELET COUNT 380 10^3/uL (150-450); RED BLOOD COUNT 3.17 10^6/uL (3.72-5.28); RED CELL DISTRIBUTION WIDTH 15.3 % (11.5-14.0); SEGMENTED NEUTROPHILS % (AUTO) 83.2 % (42-78); TOTAL CELLS COUNTED % (AUTO) 100 %; WHITE BLOOD COUNT 10.3 10^3/uL (4.0-10.5)
[2018-03-14] MEDS ORDERED: DEXAMETHASONE SOD PHOS INJ 10 MG/1 ML VIAL IV ONE (12:40)
[2018-03-14 12:47] LABS: ALANINE AMINOTRANSFERASE 16 U/L (9-52); ALBUMIN 3.5 g/dL (3.5-5.0); ALKALINE PHOSPHATASE 76 U/L (38-126); ANION GAP 8 (5-19); ASPARTATE AMINO TRANSFERASE 12 U/L (14-36); BILIRUBIN,DIRECT 0.4 mg/dL (0.0-0.4); BILIRUBIN,TOTAL 0.4 mg/dL (0.2-1.3); BLOOD UREA NITROGEN 13 mg/dL (7-20); CALCIUM 9.8 mg/dL (8.4-10.2); CARBON DIOXIDE 31 mmol/L (22-30); CHLORIDE 94 mmol/L (98-107); GLUCOSE 114 mg/dL (75-110); POTASSIUM 5.2 mmol/L (3.6-5.0); SODIUM 132.9 mmol/L (137-145); TOTAL PROTEIN 6.6 g/dL (6.3-8.2)
[2018-03-14] MEDS ORDERED: MINERAL OIL 30 ML UDCUP PR ONE (13:05)
[2018-03-14 16:11] LABS: APPEARANCE,URINE CLEAR; BILIRUBIN,URINE NEGATIVE (NEGATIVE); COLOR,URINE STRAW; GLUCOSE, URINE NEGATIVE (NEGATIVE); KETONES,URINE NEGATIVE (NEGATIVE); LEUKOCYTE ESTERASE,URINE NEGATIVE (NEGATIVE); NITRITE,URINE NEGATIVE (NEGATIVE); PROTEIN,URINE NEGATIVE (NEGATIVE); UROBILINOGEN,URINE NEGATIVE mg/dL (<2.0)
[2018-03-14 16:12] LABS: URINE SPECIFIC GRAVITY 1.007
--- NOTE | 2018-03-14 17:04 | ER Document Report ---
ED General - General Chief Complaint: Eye Problem Stated Complaint: EYE SWELLING Time Seen by Provider: 03/14/18 10:43 Information source: Patient, Relative Notes: Patient is a 57-year-old obese female comes emergency room with 2 complaints one is constipation which is chronic but has gotten worse. And to the left eye swelling shut. This her left eye when she woke up this morning was swollen shut and she was unable to open it. She also tells me that she got some new moccasin sandals and yesterday after she had a mom for most of the day she noticed her feet were itching severely she took him off and she had a rash. She is thinking that maybe this was what caused the eye to swell. She also states that she has had some black stools however she also informs me she been drinking Pepto-Bismol like water. She has a history of chronic constipation and seems to be getting worse. She has a history of [id number] diabetes mellitus hypertension, and COPD. She has not smoked a cigarette in 2 months. TRAVEL OUTSIDE OF THE [place] IN LAST 30 DAYS: No - HPI Onset: This morning Onset/Duration: Sudden, Worse Quality of pain: Achy, Pressure, Throbbing Severity: Moderate Pain Level: 3 Associated symptoms: None Exacerbated by: Denies Relieved by: Denies Similar symptoms previously: No Recently seen / treated by doctor: No - Related Data Allergies/Adverse Reactions: amoxicillin [Amoxicillin] Allergy (Mild, Verified 03/14/18 10:28) Hives cephalexin monohydrate [From Keflex] Allergy (Mild, Verified 03/14/18 10:28) Hives ciprofloxacin [From Cipro] Allergy (Mild, Verified 03/14/18 10:28) Hives codeine [Codeine] Allergy (Mild, Verified 03/14/18 10:28) Hives erythromycin base [Erythromycin Base] Allergy (Mild, Verified 03/14/18 10:28) Hives Penicillins Allergy (Mild, Verified 03/14/18 10:28) Hives levofloxacin [From Levaquin] Allergy (Verified 03/14/18 10:28) moxifloxacin [From Avelox] Allergy (Verified 03/14/18 10:28) Past Medical History - General Information source: Patient - Social History Smoking Status: Former Smoker Cigarette use (# per day): No Chew tobacco use (# tins/day): No Smoking Education Provided: No Frequency of alcohol use: None Drug Abuse: None Lives with: Family Family History: Reviewed & Not Pertinent, Arthritis, CAD, Hyperlipidemia, Hypertension Patient has suicidal ideation: No Patient has homicidal ideation: No - Past Medical History Cardiac Medical History: Reports: Hx Hypercholesterolemia, Hx Hypertension Denies: Hx Congestive Heart Failure, Hx Heart Attack Pulmonary Medical History: Reports: Hx COPD, Hx Pneumonia Denies: Hx Asthma, Hx Bronchitis, Hx Tuberculosis Neurological Medical History: Denies: Hx Seizures Endocrine Medical History: Reports: Hx Diabetes Mellitus Type 2 Renal/ Medical History: Denies: Hx End Stage Renal Disease, Hx Kidney Stones, Hx Peritoneal Dialysis GI Medical History: Reports: Hx Gastroesophageal Reflux Disease. Denies: Hx Cirrhosis, Hx Ulcer Musculoskeletal Medical History: Reports Hx Arthritis, Denies Hx Multiple Sclerosis Psychiatric Medical History: Denies: Hx Bipolar Disorder, Hx Depression, Hx Schizophrenia Past Surgical History: Reports: Hx Section, Hx Cholecystectomy - Immunizations Immunizations up to date: Yes Hx Diphtheria, Pertussis, Tetanus Vaccination: Yes Hx Pneumococcal Vaccination: 06/06/11 Review of Systems - Review of Systems Constitutional: No symptoms reported EENT: Eye pain Cardiovascular: No symptoms reported Respiratory: No symptoms reported Gastrointestinal: Constipation Genitourinary: No symptoms reported Female Genitourinary: No symptoms reported Musculoskeletal: No symptoms reported Skin: No symptoms reported Hematologic/Lymphatic: No symptoms reported Neurological/Psychological: No symptoms reported -: Yes All other systems reviewed and negative Physical Exam - Vital signs Vitals: Temp Pulse Resp BP Pulse Ox 98.5 F 116 H 18 123/54 L 100 03/14/18 10:32 03/14/18 10:32 03/14/18 10:32 03/14/18 10:32 03/14/18 10:32 Interpretation: Tachycardic - Notes Notes: Well nurished well developed female in no distress but appears uncomfortable. - General General appearance: Alert - HEENT Head: Normocephalic. No: Atraumatic Eyes: Periorbital edema, Other - Left eye upper lid swollen and endematous. Ptosis of the upper left eye lid.. Mild erythema and warm. 2 questionable areas that appear as small 1 mm pustules. Question origin maybe sometype of insect bite. Vision normal when lid lifted and patie t can see without the lid being in the way Cornea: Normal Extraocular movements intact: Yes Pupils: PERRL Ears: Normal External canal: Normal Tympanic membrane: Normal Sinus: Normal Nasal: Normal, Swelling, Clear rhinorrhea. No: Bloody discharge, Khloe deformity, Ecchymosis, Epistaxis, Purulent discharge, Septal hematoma Mouth/Lips: Normal. No: Angioedema Mucous membranes: Normal, Moist Pharynx: Normal. No: Blood in hypopharynx, Erythema, Exudate, Post nasal drainage, Retropharyngeal abscess, Tonsillar hypertrophy, Uvular edema, Potential airway comprom. Neck: Normal, Supple. No: Anterior cervical chain, Posterior cervical chain, Lymphadenopathy, Meningismus - Respiratory Respiratory status: No respiratory distress Chest status: Nontender Breath sounds: Normal. No: Productive cough, Rales, Rhonchi, Stridor, Wheezing Chest palpation: Normal - Cardiovascular Rhythm: Tachycardia Heart sounds: Normal auscultation Murmur: No - Abdominal Inspection: Normal Distension: Distended, Other - Abdomen was firm but normal Bowel sounds. Tenderness: Tender. No: McBurney's point, Buchanan's sign, Guarding, Rebound Organomegaly: No organomegaly - Rectal Tenderness: Yes Stool: Other - Brown fecal material on glove finger from digital rectal exam. neg blood Hemorrhoids: None - Extremities General upper extremity: Normal inspection, Nontender, Normal ROM, Normal strength, Normal temperature. No: Edema General lower extremity: Normal inspection, Nontender, Normal ROM, Normal strength, Normal temperature, Normal weight bearing. No: Tender, Edema, Jerry' s sign Shoulder: Normal - Neurological Neuro grossly intact: Yes Cognition: Normal Orientation: AAOx4 Edilberto Coma Scale Eye Opening: Spontaneous Captiva Coma Scale Verbal: Oriented Captiva Coma Scale Motor: Obeys Commands Edilberto Coma Scale Total: 15 Speech: Normal - Skin Skin Temperature: Warm Skin Moisture: Dry Skin Color: Normal, [place] Course - Re-evaluation Re-evalutation: 03/14/18 16:58 After doing my physical on patient had Dr. Vides take a look at patient's I do see she agreed with me on a allergic type reaction. She actually came back and told me she found to questionable areas that could be a insect bite on the upper lid. She wants me to the head them and put patient on some antibiotics as well. We will keep her on her Benadryl. Also she discussed patient's constipation with her. And informed her she would like her to take magnesium citrate and then start MiraLAX 1 scoop a day and increase until she is results. Patient had of the mineral oil and soapsuds enema and was reported to me by the nurse the patient had a huge huge evacuation. To the point where she did not make it in the bathroom to sit and it was all over the place. And felt much more relief from having this but states that she feels like she has to go all the time. I have informed patient that the constipation was close to becoming a impaction and that she impacted she would be in worse problems. This way we broke up the bottom and she needs to work on the top portion now. - Vital Signs Vital signs: Temp Pulse Resp BP Pulse Ox 97.9 F 94 18 112/76 95 03/14/18 18:09 03/14/18 18:09 03/14/18 10:32 03/14/18 18:09 03/14/18 18:09 - Laboratory Result Diagrams: 03/14/18 12:10 03/14/18 12:10 Laboratory results interpreted by me: 03/14/18 03/14/18 12:10 12:10 RBC 3.17 L Hgb 9.2 L Hct 26.7 L RDW 15.3 H Seg Neutrophils % 83.2 H Lymphocytes % 9.6 L Absolute Neutrophils 8.6 H Sodium 132.9 L Potassium 5.2 H Chloride 94 L Carbon Dioxide 31 H Est GFR (Non-Af Amer) 57 L Glucose 114 H AST 12 L Discharge - Discharge Clinical Impression: Constipation Qualifiers: Constipation type: other constipation type Qualified Code(s): K59.09 - Other constipation Cellulitis of eyelid Qualifiers: Laterality: left Qualified Code(s): H00.036 - Abscess of eyelid left eye, unspecified eyelid Condition: Stable Disposition: HOME, SELF-CARE Instructions: Antibiotic Therapy ([facility]), Cellulitis ([facility]), Constipation ([facility]) Additional Instructions: As we discussed on your constipation you were close to have an impaction. It was important for us to break the bottom loose in order for you to work on getting the top working. I have given you the formula from Dr. Vides which includes magnesium citrate taken drink 1 bottle. Also add MiraLAX starting out taking 1 scoop full a day and increasing it until you get results. You can not start more than 1 teaspoon a day and then take it up to 2. After a week or 2 take it up to 3. Every once got a different tolerance level for bulking up. And then again you may use my formula which is get you the generic version of milk of magnesia before bed tonight it comes with a measuring cup on the bottle drink 2 of those measuring cups followed by 12 ounces of warm tap water. In the morning when you wake up drink a hot coffee or tea or hot chocolate and this will stimulate you to have a nice fluid bowel movement. It is very gentle and you can use it often if you need to. Do not wait to you get totally backed up before you start attempting to unclog yourself. If you go 3 days or 4 days without a bowel movement its time to do a treatment. Continue with your current other medications and if you have any concerns or problems return to ER for recheck. Prescriptions: Doxycycline Hyclate 100 mg PO BID #20 capsule Fluconazole [Diflucan] 150 mg PO ONCE PRN #1 tablet PRN Reason: Referrals: YAJAIRA ARGUETA MD [Primary Care Provider] - Follow up as needed
[2018-03-14 18:11] VITALS: BP 112/76
== END 2018-03-14 18:11 | disposition home or self-care (01) ==
LOC: ER 10:21
DX: H00.036 Abscess of eyelid left eye, unspecified eyelid (principal); K59.00 Constipation, unspecified; L29.9 Pruritus, unspecified; J34.89 Other specified disorders of nose and nasal sinuses; E11.9 Type 2 diabetes mellitus without complications; I10 Essential (primary) hypertension; J44.9 Chronic obstructive pulmonary disease, unspecified; Z88.0 Allergy status to penicillin; Z88.1 Allergy status to other antibiotic agents; Z88.5 Allergy status to narcotic agent; Z87.891 Personal history of nicotine dependence
CPT/HCPCS: 99284; 96374; 36415; 85025; 82272; 80053; 81001; 74019; J3490; J1100

== ENCOUNTER → 2018-07-19 | Outpatient (CLI) | payer MEDICARE ==
--- NOTE | 2018-07-22 09:56 | XCELERA REPORT ---
[address] [address] Lower Extremity Arterial Evaluation Name: TONY MCGINNIS Age: 58 yrs Gender: Female : 1960 Patient Status: Outpatient Patient Location: [facility] Study Date: 07/19/2018 09:11 AM Procedure: A color flow and duplex scan of the lower extremity arteries was performed bilaterally with velocity and waveform analysis. Reason For Study: PVD Ordering Physician: YAJAIRA ARGUETA Performed By: Rosa Reddy Measurements and Calculations Right Left SALT WASHER PSV -123.7 -149.1cm/sec Prox PFA PSV 112.7 82.3 cm/sec Prox SFA PSV 138.5 134.4 cm/sec Mid SFA PSV 102.5 109.5 cm/sec Dist SFA PSV 114.5 79.6 cm/sec Mid RL PSV 63.0 66.0 cm/sec Mid PULVERIZER TENDER PSV 82.8 66.0 cm/sec Joo Pedis PSV -83.0 -78.6 cm/sec Right Side Arterial Evaluation Normal velocity and triphasic waveforms noted from the Common Femoral artery to the Posterior Tibial . Biphasic with normal velocity in the Anterior Tibial and Dorsalis Pedis arteries. Ankle Brachial index not obtained due to leg pain. Left Side Arterial Evaluation Normal velocity and triphasic waveforms noted from the Common Femoral artery to the Infrageniculate vessels. Biphasic with normal velocity in the Dorsalis Pedis artery. Ankle Brachial index not obtained due to leg pain. Interpretation Summary Mild hemodynamically significant lesions in the bilateral lower extremities, on duplex imaging, at rest. Minimal disease evident in the Anterior Tibial bilaterally. At least one normal Infrageniculate vessel to the ankle. : YAJAIRA ARGUETA > Derek Diaz
== END ==
LOC: SP 08:10
PROVIDERS: ATTEND Internal Medicine
DX: I73.9 Peripheral vascular disease, unspecified (principal)
CPT/HCPCS: 93925

== ENCOUNTER → 2018-10-27 | Outpatient (CLI) | payer MEDICARE ==
--- NOTE | 2018-10-27 15:50 | RADIOLOGY REPORT (SQ) ---
EXAM DESCRIPTION: ANKLE LEFT AP/LATERAL COMPLETED DATE/TIME: 10/27/2018 3:30 pm REASON FOR STUDY: PAIN IN LEFT ANKLE AND JOINTS OF LEFT FOOT M79.605 PAIN IN LEFT LEG M25.572 PAIN IN LEFT ANKLE AND JOINTS OF LEFT FOOT M79.672 PAIN IN LEFT FOOT COMPARISON: None. NUMBER OF VIEWS: Two views. TECHNIQUE: AP and lateral radiographic images acquired of the left ankle. LIMITATIONS: None. FINDINGS: MINERALIZATION: Normal. BONES: No acute fracture or dislocation. No worrisome bone lesions. JOINTS: No effusions. SOFT TISSUES: No soft tissue swelling. No foreign body. OTHER: No other significant finding. IMPRESSION: NEGATIVE STUDY OF THE LEFT ANKLE. NO RADIOGRAPHIC EVIDENCE OF ACUTE INJURY. TECHNICAL DOCUMENTATION: JOB ID: [id number] [employer]- All Rights Reserved Reading location - IP/workstation name: [email or web address]
--- NOTE | 2018-10-27 15:50 | RADIOLOGY REPORT (SQ) ---
EXAM DESCRIPTION: TIBIA FIBULA LEFT COMPLETED DATE/TIME: 10/27/2018 3:30 pm REASON FOR STUDY: PAIN IN LEFT LEG M79.605 PAIN IN LEFT LEG M25.572 PAIN IN LEFT ANKLE AND JOINTS OF LEFT FOOT M79.672 PAIN IN LEFT FOOT COMPARISON: None. NUMBER OF VIEWS: Two views. TECHNIQUE: Two radiographic images acquired of the left tibia and fibula to include the knee and ank le in at least one projection. LIMITATIONS: None. FINDINGS: MINERALIZATION: Normal. BONES: No acute fracture or dislocation. No worrisome bone lesions. SOFT TISSUES: No obvious swelling or foreign body. OTHER: No other significant finding. IMPRESSION: NEGATIVE STUDY OF THE LEFT TIBIA AND FIBULA. NO RADIOGRAPHIC EVIDENCE OF ACUTE INJURY. TECHNICAL DOCUMENTATION: JOB ID: [id number] [employer]- All Rights Reserved Reading location - IP/workstation name: [email or web address]
--- NOTE | 2018-10-27 15:51 | RADIOLOGY REPORT (SQ) ---
EXAM DESCRIPTION: FOOT LEFT 2 VIEWS COMPLETED DATE/TIME: 10/27/2018 3:30 pm REASON FOR STUDY: PAIN IN LEFT FOOT M79.605 PAIN IN LEFT LEG M25.572 PAIN IN LEFT ANKLE AND JOINTS OF LEFT FOOT M79.672 PAIN IN LEFT FOOT COMPARISON: None. NUMBER OF VIEWS: Two views. TECHNIQUE: AP and lateral radiographic images acquired of the left foot. LIMITATIONS: None. FINDINGS: MINERALIZATION: Normal. BONES: No acute fracture or dislocation. No worrisome bone lesions. JOINTS: No effusions. SOFT TISSUES: No soft tissue swelling. No foreign body. OTHER: No other significant finding. IMPRESSION: NEGATIVE STUDY OF THE LEFT FOOT. NO RADIOGRAPHIC EVIDENCE OF ACUTE INJURY. TECHNICAL DOCUMENTATION: JOB ID: [id number] [employer]- All Rights Reserved Reading location - IP/workstation name: [email or web address]
== END ==
LOC: OD 14:55
PROVIDERS: ATTEND Internal Medicine
DX: M79.605 Pain in left leg (principal); M25.572 Pain in left ankle and joints of left foot; M79.672 Pain in left foot

== ENCOUNTER → 2020-03-12 | Outpatient (CLI) | payer MEDICARE ==
--- NOTE | 2020-03-12 13:36 | RADIOLOGY REPORT (SQ) ---
EXAM DESCRIPTION: CHEST PA/LATERAL IMAGES COMPLETED DATE/TIME: 03/12/2020 1:03 pm REASON FOR STUDY: CHEST PAIN, UNSPECIFIED COMPARISON: 08/29/2012 EXAM PARAMETERS: NUMBER OF VIEWS: two views TECHNIQUE: Digital Frontal and Lateral radiographic views of the chest acquired. RADIATION DOSE: NA LIMITATIONS: none FINDINGS: LUNGS AND PLEURA: No opacities, masses or pneumothorax. No pleural effusion. MEDIASTINUM AND HILAR STRUCTURES: No masses or contour abnormalities. HEART AND VASCULAR STRUCTURES: Heart normal size. No evidence for failure. BONES: No acute findings. HARDWARE: None in the chest. OTHER: No other significant finding. IMPRESSION: NO SIGNIFICANT RADIOGRAPHIC FINDING IN THE CHEST. TECHNICAL DOCUMENTATION: JOB ID: [id number] [employer]- All Rights Reserved Reading location - IP/workstation name: [email or web address]
== END ==
LOC: OD 12:52
PROVIDERS: ATTEND Internal Medicine
DX: R07.9 Chest pain, unspecified (principal)
CPT/HCPCS: 71046